=== PATIENT | male | born 1945 | race Caucasian/White ===

== ENCOUNTER → 2020-03-25 09:15 | Outpatient (CLI) | payer MEDICARE, SELFPAY ==
--- NOTE | ~2020-03-25 | XR_ITS ---
EXAMINATION: XR hand RT min 3V, XR wrist RT min 3V EXAM DATE: 03/25/2020 09:30 INDICATION: No known recent injury provided at this time. Pain of the right hand, wrist. TECHNIQUE: Right hand frontal, lateral and oblique projections obtained and reviewed. Right wrist fro ntal, frontal with ulnar deviation, oblique and lateral projections obtained and reviewed. There is no prior study for comparison. FINDINGS: Right metacarpal bones are unremarkable. Right wrist scapholunate joint space is maintain ed. There is mild to moderate right 1st interphalangeal primary osteoarthritis, less at other interph alangeal joints. Juxta-articular erosion at the head of the right 2nd middle phalanx. No other erosio ns identified. Gout not excludable. Suspect some swelling of this digit. There is moderate 1st carpometacarpal primary osteoarthritis. There are no acute fractures or disloca tions identified. There is no subcutaneous gas. There are no radiopaque foreign bodies. IMPRESSION: 1. Right hand and wrist polyarticular osteoarthritis, most advanced right 1st CMC and 2nd DIP joints. 2. Small erosion right 2nd middle phalangeal head, and some digit swelling. Gout not excludable. Reviewed, dictated and finalized at location B. VIRTUALIZATION CONSULTANT IMPRESSION: 1. Right hand and wrist polyarticular osteoarthritis, most advanced right 1st C MC and 2nd DIP joints. 2. Small erosion right 2nd middle phalangeal head, and some digit swelling. Gou t not excludable.
== END ==
PROVIDERS: PCP Family Medicine; Visit Provider Family Medicine
DX: M25.531 Pain in right wrist (principal); M79.643 Pain in unspecified hand; M19.031 Primary osteoarthritis, right wrist
CPT/HCPCS: 73110; 73130

== ENCOUNTER 2020-06-04 09:03 | Outpatient (CLI) | payer MEDICARE, SELFPAY ==
--- NOTE | ~2020-06-04 | XR_ITS ---
EXAMINATION: XR hip LT min 3V w AP pelvis INDICATION: Left hip pain TECHNIQUE: AP view the pelvis and three views of the left hip are obtained. COMPARISON: None available FINDINGS: Bone alignment is normal. There is no fracture. The soft tissues are unremarkable. Calcifie d atherosclerosis is noted. IMPRESSION: 1. No acute osseous abnormality. Reviewed, dictated and finalized at location B.
== END 2020-06-04 09:04 | disposition home or self-care (01) ==
PROVIDERS: PCP Family Medicine; Visit Provider Family Medicine
DX: M25.559 Pain in unspecified hip (principal)
CPT/HCPCS: 73502

== ENCOUNTER → 2020-06-18 02:02 | Outpatient (CLI) | payer MEDICARE, SELFPAY ==
[2020-06-18 19:11] LABS: SARS-CoV-2 RNA PCR Negative
== END ==
PROVIDERS: PCP Family Medicine; Visit Provider Internal Medicine Gastroenterology
DX: Z01.812 Encounter for preprocedural laboratory examination (principal); Z20.822 Contact with and (suspected) exposure to COVID-19
CPT/HCPCS: C9803; U0003; U0005

== ENCOUNTER 2020-06-21 01:59 | Day surgery (SDC) | payer MEDICARE, SELFPAY ==
[2020-06-09 14:00] VITALS: BMI 25.1
[2020-06-21 10:43] VITALS: BP 116/73; PULSE 80; RESP 18; TEMP 36.2; O2SAT 95
--- NOTE | 2020-06-21 10:57 | WPDANESEPPF ---
Anes - Initial Pre Proc Eval Procedure: Operation Date: 06/21/20 11:30 Proposed Procedures p Screening Colonoscopy - Baltazar Aguilar DO Date/Time: 06/21/20 10:57 Surgeon: Baltazar Aguilar DO Pre Op Diagnosis: neoplasm screening Patient Data Age: 74 Gender: M Height: 5 ft 4 in Weight: 66.1 kg Last Vital Signs Temp 36.2 C L 06/21/20 10:43 Pulse 80 06/21/20 10:43 Resp 18 06/21/20 10:43 BP 116/73 06/21/20 10:43 Pulse Ox 95 06/21/20 10:43 Allergies Allergy/AdvReac Type Severity Reaction Status Date / Time No Known Allergies Allergy Verified 06/21/20 10:36 Home Medications Medication Instructions Recorded Confirmed Type amiodarone 200 mg tablet 200 mg PO DAILY 11/18/19 06/09/20 History aspirin 81 mg tablet,delayed 81 mg PO DAILY 11/18/19 06/09/20 History release ferrous sulfate 325 mg (65 mg 325 mg PO DAILY 11/18/19 06/09/20 History iron) tablet multivitamin,[id number]-qaog-[id number] 1 tablet PO DAILY 11/18/19 06/09/20 History naproxen sodium 220 mg tablet 220 mg PO BID PRN 11/18/19 06/09/20 History apixaban 5 mg tablet 5 mg PO BID 03/02/20 06/09/20 History docusate sodium 100 mg capsule 100 mg PO DAILY 03/02/20 06/09/20 History furosemide 20 mg tablet 20 mg PO QAM 03/02/20 06/09/20 History potassium chloride 20 mEq See Rx Instructions .ROUTE .COMPLEX 03/02/20 06/09/20 History tablet,extended release pravastatin 40 mg tablet 40 mg PO DAILY 03/02/20 06/09/20 History albuterol sulfate 90 mcg/actuation 2 puff INHALATION Q4H PRN #8.5 g 03/04/20 06/09/20 Rx aerosol inhaler omeprazole 40 mg capsule,delayed See Rx Instructions .ROUTE 05/06/20 06/09/20 Rx release .COMPLEX #90 capsule hydroxyzine pamoate 25 mg capsule 25 mg PO TID PRN 06/01/20 06/09/20 History metoprolol succinate 100 mg 50 mg PO DAILY tablet 06/01/20 06/09/20 History tablet,extended release 24 hr Patient hx anesthesia problems: none Family hx anesthesia problems: none PMFSH Past Medical History Medical History Acute UTI (~06/05/18) Afib Anemia Cognitive impairment COPD (chronic obstructive pulmonary disease) Dyslipidemia Essential (primary) hypertension GERD without esophagitis History of colon polyps Hx of non-ST elevation myocardial infarction (NSTEMI) Left shoulder pain Paroxysmal A-fib Rotator cuff tendonitis Surgical History Surgical History History of cardioversion 05/2017 and 10/2019 History of eye surgery (~1950) Hx of tonsillectomy (~1955) Family History Family History Mother Alzheimer disease Father Alzheimer disease Social History Social History Smoking packs per day: 0.5 Smoking cigarettes per day: 10.0 Years smoked: 3 Smoking pack-years: 1.50 Smoking status: Former smoker Smoking end date: 02/19/75 Alcohol intake: current Substance use: never Substance use type: does not use Living arrangements: with family Additional living arrangements comments: Gender identity (if verbalized by the patient): Male Spiritual care concerns: No Anes - Eval Final PreProcedure Day of Procedure 06/21/20 10:57 Patient weight: normal Heart: regular rate and rhythm Lungs: decreased breath sounds Airway: Mallampati scale class II Neurological: other (alert) Last oral intake: >/= 8 hours ASA classification: III Emergent: no Anesthetic plan: proceed Anesthesia type and monitoring: general GIVS and standard monitoring Informed Consent: The patient's anesthetic plan and its attendant risks and benefits were discussed with the patient/family/POA. Questions were solicited and answers provided to the satisfaction of the patient/family/POA.
[2020-06-21] MEDS: LACTATED RINGERS 1,000 ML 150 ML IV CONT (10:58)
--- NOTE | 2020-06-21 12:08 | WPDGICN ---
GI Consult Note Consult date/time: 06/21/20 12:08 HPI: Reason for visit colonoscopy. This very pleasant gentleman sitting consultation request the primary physician. Screening and surveillance colonoscopy. Patient's history adenomatous colon polyps. HTN. HLD. Atrial fibrillation. NSTEMI. GERD. COPD. Dementia. Recommendation: Colonoscopy. History: This very pleasant gentleman has negative GI review systems. He is here for colonoscopy to assess for underlying inflammatory neoplastic disease. He has history adenomatous colon polyps. Physical examination: General: very pleasant patient in no acute distress. HEENT: Head was normocephalic sclerae is clear mouth without masses neck was supple. Heart: Rate rhythm regular without S3 or S4. Occasional ectopic beat. Lungs: Decreased breath sounds bilaterally with crackles . Abdomen: Soft with no guarding or rigidity. Bowel sounds were active. Neurologic: Cranial nerves 2 through 12 intact. No focal defects. No clonus. Musculoskeletal system: Revealed no joint tenderness or swelling no muscle atrophy. Extremities: Reveal no significant edema. Skin: Warm and dry with normal turgor. Mental status: intact. Patient is alert and oriented. Review of Systems Review of Systems: All systems reviewed & are unremarkable except as noted in HPI and below PMFSH Past Medical History Medical History Acute UTI (~06/05/18) Afib Anemia Cognitive impairment COPD (chronic obstructive pulmonary disease) Dyslipidemia Essential (primary) hypertension GERD without esophagitis History of colon polyps Hx of non-ST elevation myocardial infarction (NSTEMI) Left shoulder pain Paroxysmal A-fib Rotator cuff tendonitis Surgical History Surgical History History of cardioversion 05/2017 and 10/2019 History of eye surgery (~1950) Hx of tonsillectomy (~1955) Family History Family History Mother Alzheimer disease Father Alzheimer disease Social History Social History Smoking packs per day: 0.5 Smoking cigarettes per day: 10.0 Years smoked: 3 Smoking pack-years: 1.50 Smoking status: Former smoker Smoking end date: 02/19/75 Alcohol intake: current Substance use: never Substance use type: does not use Living arrangements: with family Additional living arrangements comments: Gender identity (if verbalized by the patient): Male Spiritual care concerns: No Meds Home Medications and Allergies Home Medications Medication Instructions Recorded Confirmed Type amiodarone 200 mg tablet 200 mg PO DAILY 11/18/19 06/09/20 History aspirin 81 mg tablet,delayed 81 mg PO DAILY 11/18/19 06/09/20 History release ferrous sulfate 325 mg (65 mg 325 mg PO DAILY 11/18/19 06/09/20 History iron) tablet multivitamin,ih-xswn-upuyeshv 1 tablet PO DAILY 11/18/19 06/09/20 History naproxen sodium 220 mg tablet 220 mg PO BID PRN 11/18/19 06/09/20 History apixaban 5 mg tablet 5 mg PO BID 03/02/20 06/09/20 History docusate sodium 100 mg capsule 100 mg PO DAILY 03/02/20 06/09/20 History furosemide 20 mg tablet 20 mg PO QAM 03/02/20 06/09/20 History potassium chloride 20 mEq See Rx Instructions .ROUTE .COMPLEX 03/02/20 06/09/20 History tablet,extended release pravastatin 40 mg tablet 40 mg PO DAILY 03/02/20 06/09/20 History albuterol sulfate 90 mcg/actuation 2 puff INHALATION Q4H PRN #8.5 g 03/04/20 06/09/20 Rx aerosol inhaler omeprazole 40 mg capsule,delayed See Rx Instructions .ROUTE 05/06/20 06/09/20 Rx release .COMPLEX #90 capsule hydroxyzine pamoate 25 mg capsule 25 mg PO TID PRN 06/01/20 06/09/20 History metoprolol succinate 100 mg 50 mg PO DAILY tablet 06/01/20 06/09/20 History tablet,extended rele
[2020-06-21 12:33] VITALS: BP 95/58; PULSE 60; RESP 10; O2SAT 100
[2020-06-21 12:43] VITALS: BP 108/60; PULSE 60; RESP 11; O2SAT 100
[2020-06-21 12:53] VITALS: BP 120/68; PULSE 68; RESP 22; O2SAT 100
== END 2020-06-21 13:18 | disposition home or self-care (01) ==
PROVIDERS: PCP Family Medicine; Visit Provider Internal Medicine Gastroenterology
PROC: 0DJD8ZZ Inspection of Lower Intestinal Tract, Via Natural or Artificial Opening Endoscopic (ICD-10-PCS; CPT 45378; principal; 2020-06-21 11:30)
DX: Z12.11 Encounter for screening for malignant neoplasm of colon (principal); Z86.010 Personal history of colon polyps; K64.8 Other hemorrhoids; K21.9 Gastro-esophageal reflux disease without esophagitis; E78.5 Hyperlipidemia, unspecified; J44.9 Chronic obstructive pulmonary disease, unspecified; F03.90 Unspecified dementia, unspecified severity, without behavioral disturbance, psychotic disturbance, mood disturbance, and anxiety; I25.2 Old myocardial infarction; I48.91 Unspecified atrial fibrillation; I48.0 Paroxysmal atrial fibrillation; Z87.891 Personal history of nicotine dependence; Z79.01 Long term (current) use of anticoagulants; Z79.82 Long term (current) use of aspirin; I10 Essential (primary) hypertension
CPT/HCPCS: G0105; C9803; J2704; J7120; U0003; U0005

== ENCOUNTER 2021-09-06 10:38 | Outpatient (CLI) | payer MEDICARE, SELFPAY ==
[2021-09-06 18:49] LABS: Alanine Aminotransferase 17 U/L (6-50); Albumin Level 4.5 g/dL (3.5-5.1); Alkaline Phosphatase 61 U/L (38-126); Anion Gap 11 mmol/L (8-16); Aspartate Amino Transferase 43 U/L (17-59); Bilirubin,Total 0.7 mg/dL (0.2-1.3); Blood Urea Nitrogen 14 mg/dL (9-20); Calcium 9.6 mg/dL (8.4-10.2); Carbon Dioxide 24 mmol/L (22-30); Chloride 99 mmol/L (98-107); Estimated Glomerular Filt Rate > 60; Glucose 99 mg/dL (65-110); Potassium 4.1 mmol/L (3.4-5.0); Sodium 134 mmol/L (137-145)
== END 2021-09-06 10:39 | disposition home or self-care (01) ==
LOC: ANHGOSHLAB 10:44
PROVIDERS: PCP Family Medicine; Visit Provider Family Medicine
DX: Z51.81 Encounter for therapeutic drug level monitoring (principal); Z79.899 Other long term (current) drug therapy; I10 Essential (primary) hypertension
CPT/HCPCS: 36415; 80053

== ENCOUNTER → 2021-09-29 08:22 | Outpatient (CLI) | payer MEDICARE, SELFPAY ==
--- NOTE | ~2021-09-29 | MR_ITS ---
EXAMINATION: MR hip LT wo/w con DATE: 09/29/2021 09:32 INDICATION: Left hip pain. TECHNIQUE: Magnetic resonance imaging (MRI) of the left hip was performed without intravenous contras t. COMPARISON: Left hip radiographs 09/23/2021 FINDINGS: Bones/cartilage: Bone alignment is normal. No fracture. There is mild osteoarthritis of the hips. Small [id number]-kw-iexp images of the left hip demonstrate partial thickness cartilage loss and tiny osteophytes. Labrum: There is a tear of the left acetabular labrum. Fluid: There is no hip joint effusion. Soft tissues: Stool distends the rectum. The prostate is mildly enlarged. There are small right and large left hydr oceles. The gluteus minimus and gluteus medius tendons are normal. There is moderate tendinopathy of the hamstring origins bilaterally. The iliopsoas tendons are normal. IMPRESSION: 1. No fracture. 2. Mild osteoarthritis of the hips. 3. Small right and large left hydroceles. Reviewed, dictated and finalized at location A.
== END ==
PROVIDERS: PCP Family Medicine; Visit Provider Nurse Practitioner Family
DX: M25.552 Pain in left hip (principal); M16.0 Bilateral primary osteoarthritis of hip; N43.3 Hydrocele, unspecified
CPT/HCPCS: 73723; A9577

== ENCOUNTER → 2021-12-27 13:02 | Outpatient (CLI) | payer MEDICARE, SELFPAY ==
--- NOTE | ~2021-12-27 | MR_ITS ---
EXAMINATION: MR lumbar spine wo con DATE: 12/27/2021 13:40 INDICATION: Other low back pain. TECHNIQUE: Magnetic resonance imaging (MRI) of the lumbar spine was performed without intravenous con trast. Sequences included sagittal T2-weighted FSE, sagittal T2-weighted FS FSE, sagittal T1-weighted FSE, and axial T2-weighted FSE. COMPARISON: None FINDINGS: There is 5 degrees dextrocurvature of thoracolumbar spine. There is 5 mm anterolisthesis of L4 on L5. Vertebral body heights are normal. There is moderately decreased disc height at T12-L1, mi ldly decreased disc height at L2-L3 and L3-L4, and moderately decreased disc height at L4-L5. The dis asim spinal cord signal intensity is normal. The conus medullaris is at T12. The following disc levels are specifically discussed: T12-L1: The disc is bulging. There is mild bilateral facet joint osteoarthritis. There is no neural f oraminal stenosis. There is mild central canal stenosis. L1-L2: The disc is bulging. There is no facet joint osteoarthritis. There is mild bilateral neural fo raminal stenosis. There is no central canal stenosis. L2-L3: The disc is mildly bulging. There is severe right and mild left facet joint osteoarthritis. Th ere is mild bilateral neural foraminal stenosis. There is mild central canal stenosis. L3-L4: The disc is bulging. There is severe bilateral facet joint osteoarthritis. There is mild bilat eral neural foraminal stenosis. There is mild central canal stenosis. L4-L5: The disc is bulging and has an annular fissure. There is severe bilateral facet joint osteoart hritis. There is mild bilateral neural foraminal stenosis. There is moderate central canal stenosis. There is severe stenosis of right lateral recess. L5-S1: The disc does not extend beyond the endplate margin. There is moderate bilateral facet joint o steoarthritis. There is mild bilateral neural foraminal stenosis. There is no central canal stenosis. IMPRESSION: 1. Moderate lumbar spondylosis. Reviewed, dictated and finalized at location A. OR MARKET INTELLIGENCE CONSULTANT
== END ==
PROVIDERS: PCP Family Medicine; Visit Provider Nurse Practitioner Family
DX: M54.59 Other low back pain (principal); M43.06 Spondylolysis, lumbar region
CPT/HCPCS: 72148

== ENCOUNTER → 2022-05-04 16:00 | Outpatient (CLI) | payer MEDICARE, SELFPAY ==
--- NOTE | ~2022-05-04 | XR_ITS ---
XR chest 2V 05/04/2022 16:11 Indication: Shortness of breath Procedure: 2 view chest Comparison: No prior studies for comparison. Findings: There are coarse interstitial infiltrates bilaterally along the periphery with basilar pred ominance, suspicious for chronic interstitial fibrosis. Cardiomegaly. There is right upper lobe atele ctasis/scarring. Cannot exclude superimposed pneumonia. There is a hiatal hernia. The lungs are hyperinflated which is consistent with, but not diagnostic of chronic obstructive pulmo nary disease. Impression: 1: Probable chronic interstitial fibrosis. Cannot exclude superimposed pneumonia. 2: Hiatal hernia. Reviewed, dictated and finalized at location A. Impression: 1: Probable chronic interstitial fibrosis. Cannot exclude superimposed pneumoni a. 2: Hiatal hernia.
== END ==
PROVIDERS: PCP Family Medicine; Visit Provider Family Medicine
DX: R06.02 Shortness of breath (principal); R91.8 Other nonspecific abnormal finding of lung field; K44.9 Diaphragmatic hernia without obstruction or gangrene
CPT/HCPCS: 71046

== ENCOUNTER 2022-05-18 08:12 | Outpatient (CLI) | payer MEDICARE, SELFPAY ==
--- NOTE | ~2022-05-18 | CT_ITS ---
EXAMINATION:CT diagnostic chest w con DATE: 05/18/2022 08:46 INDICATION: Pulmonary fibrosis. TECHNIQUE: Computed tomography (CT) of the chest was performed with 75 mL Omnipaque 350 intravenous c ontrast. Automated exposure control and iterative reconstruction technique were employed. The dose-le ngth product (DLP) was 152.22 mGy-cm. COMPARISON: Chest 2 views 05/04/2022 FINDINGS: There is widespread septal thickening the lungs with a peripheral predominance. There is pe ripheral honeycombing in all lobes. There are subsegmental airspace and groundglass opacities in righ t upper lobe. No pleural effusion. There is a large sliding hiatal hernia. The heart size is normal. There are coronary artery calcifications. No pericardial effusion. There are cysts in the liver measu ring up to 13 mm. Calcifications in the liver and spleen are consistent with old granulomatous diseas e. There is severe cervical and thoracic spondylosis. There is cortical thinning of the kidneys. IMPRESSION: 1. Chronic interstitial lung disease in a pattern of usual interstitial pneumonia (UIP). 2. Subsegmental airspace and groundglass opacities in right upper lobe, likely pneumonia. 3. Large sliding hiatal hernia. Reviewed, dictated and finalized at location A. IMPRESSION: 1. Chronic interstitial lung disease in a pattern of usual interstitial pneumon ia (UIP). 2. Subsegmental airspace and groundglass opacities in right upper lobe, likely pneumonia. 3. Large sliding hiatal hernia.
== END 2022-05-18 08:13 | disposition home or self-care (01) ==
PROVIDERS: PCP Family Medicine; Visit Provider Family Medicine
DX: J84.10 Pulmonary fibrosis, unspecified (principal); J84.9 Interstitial pulmonary disease, unspecified; R91.8 Other nonspecific abnormal finding of lung field; K44.9 Diaphragmatic hernia without obstruction or gangrene
CPT/HCPCS: 71260; Q9967

== ENCOUNTER 2022-05-25 08:17 | Outpatient (CLI) | payer MEDICARE, SELFPAY ==
--- NOTE | 2022-05-25 11:30 | PCRCNOTE ---
PATIENT UNABLE TO PERFORM PFT TESTING DUE TO COGNITIVE DECLINE AND INABILITY TO FOLLOW INSTRUCTIONS. PATIENT WAS NOT CHARGED FOR TEST. ORDERING DR BASSAM NOTIFIED
== END 2022-05-25 08:18 | disposition home or self-care (01) ==
LOC: ANHPFT 08:17
PROVIDERS: PCP Family Medicine; Visit Provider Family Medicine
DX: J84.10 Pulmonary fibrosis, unspecified (principal)
CPT/HCPCS: 99199

== ENCOUNTER 2022-06-23 12:12 | Outpatient (CLI) | payer MEDICARE, SELFPAY ==
[2022-06-23 13:00] VITALS: PULSE 63; O2SAT 96
[2022-06-23 13:05] VITALS: PULSE 78; O2SAT 97
[2022-06-23 13:15] VITALS: PULSE 68; O2SAT 97
--- NOTE | 2022-06-23 13:20 | HOMEO2EVAL ---
Evaluation was performed at [facility] Home Oxygen Evaluation RC: Home Oxygen (O2) Evaluation Start: 06/23/22 13:17 Freq: Status: Active Protocol: RPE Activity Type Activity Date Activity User E-sign Co-sign Detail Recorded Client Recorded Date Recorded By Document 06/23/22 13:00 DJO [email or web address] 06/23/22 13:20 DJO Document 06/23/22 13:05 DJO [email or web address] 06/23/22 13:20 DJO Document 06/23/22 13:15 DJO [email or web address] 06/23/22 13:20 DJO 06/23/22 06/23/22 06/23/22 13:00 13:05 13:15 Home O2 Evaluation [Oxygen] -Test Phase Resting Exercise Resting -Oxygen Delivery Room Air Room Air Room Air [Pulse Oximetry] -Pulse Oximetry (90-100 %) 96 97 97 [Pulse Rate] -Pulse Rate (60-100 beats/min) 63 78 68 [Exercise] -Ambulation Distance (feet) 500 -Ambulation Distance (meters) 152.39 [Charges] -Treatment Charges O2 Evaluation - Outpatient
== END 2022-06-23 12:13 | disposition home or self-care (01) ==
LOC: ANHPFT 12:14
PROVIDERS: PCP Family Medicine; Visit Provider Internal Medicine Pulmonary Disease
DX: J84.9 Interstitial pulmonary disease, unspecified (principal); F03.90 Unspecified dementia, unspecified severity, without behavioral disturbance, psychotic disturbance, mood disturbance, and anxiety
CPT/HCPCS: 94618

== ENCOUNTER 2022-06-26 10:15 | Outpatient (CLI) | payer MEDICARE, SELFPAY ==
--- NOTE | ~2022-06-26 | XR_ITS ---
EXAMINATION: XR barium swallow modified DATE: 06/26/2022 11:30 INDICATION: Dysphagia TECHNIQUE: Modified barium esophagram was performed by myself who administered fluoroscopy, in conju nction with speech pathologist who administered barium in varying consistencies as per speech patholo gist documentation. This was recorded on tape. A single fluoroscopic spot image was recorded. Fluoros copy exposure time was 1.5 minutes. The DAP for this procedure was 1.119 Gycm2. FINDINGS: Oral stage: Adequate function. Pharyngeal phase: Piriform sinus residue. Laryngeal penetration: Present. Aspiration: Present. Laryngeal sensitivity: Absent. IMPRESSION: Abnormal modified barium swallow. Please refer to speech pathologist findings and specifi c feeding recommendations. Reviewed, dictated and finalized at location A. IMPRESSION: Abnormal modified barium swallow. Please refer to speech pathologis t findings and specific feeding recommendations.
--- NOTE | 2022-06-26 16:59 | REHSTMBS ---
Assessment and note entered by Bel Duran, ASSISTANT FINANCE DIRECTOR Modified Barium Swallow Evaluation Feeding Type Recommended Oral Food Consistency Regular, Level 7 Liquid Consistency Mildly Thick (2) ST Clinical Summary MODIFIED BARIUM SWALLOW STUDY This patient was seen for a Modified Barium Swallow to assess this patient's risk for aspiration. Initially, he stated he does not have difficulty swallowing however when asked about coughing at every meal, patient then did admit to coughing at every meal but does not equate this with difficulty swallowing. He essentially denied having difficulty swallowing both food and liquid . Patient was presented with thin liquid per spoon, cup, and per straw, nectar thick liquid per cup and per straw, pudding mixed with semi-solid contrast medium, then fruit pieces and alivia cracker pieces both coated with semi-solid mixture. Patient exhibited consistent penetration into the upper laryngeal vestibule on thin liquid and nectar thick liquid per straw however although he exhibited penetration with thin liquid per cup, he avoided penetration with cup with nectar thick liquid. He tolerated other consistencies well. Impairments: Oral Stage: None Pharyngeal Stage: Reduced laryngeal elevation contributing to reduced airway closure given liquids too quickly per straw. Cricopharyngeal Stage: None. Recommend patient have Regular Diet, Mildly Thick Liquids, NO STRAWS. No further Speech Therapy is indicated at this time. Thank you for this referral.
== END 2022-06-26 10:16 | disposition home or self-care (01) ==
PROVIDERS: PCP Family Medicine; Visit Provider Internal Medicine Pulmonary Disease
DX: T17.908A Unspecified foreign body in respiratory tract, part unspecified causing other injury, initial encounter (principal); F03.90 Unspecified dementia, unspecified severity, without behavioral disturbance, psychotic disturbance, mood disturbance, and anxiety; R93.3 Abnormal findings on diagnostic imaging of other parts of digestive tract
CPT/HCPCS: 92611

== ENCOUNTER → 2022-09-06 11:57 | Outpatient (CLI) | payer MEDICARE, SELFPAY ==
--- NOTE | ~2022-09-06 | XR_ITS ---
EXAMINATION: XR elbow RT min 3V DATE: 09/06/2022 12:18 INDICATION: Right elbow pain. TECHNIQUE: 5 views of right elbow were obtained. COMPARISON: None. FINDINGS: There is an oblique fracture of olecranon of proximal ulna. The distal fracture fragment de monstrates 3 mm distraction. There is mild elbow joint osteoarthritis. There is an elbow joint effusi on. IMPRESSION: 1. Oblique fracture of olecranon of proximal ulna. Reviewed, dictated and finalized at location A.
== END ==
PROVIDERS: PCP Family Medicine; Visit Provider Family Medicine
DX: S52.021A Displaced fracture of olecranon process without intraarticular extension of right ulna, initial encounter for closed fracture (principal); W19.XXXA Unspecified fall, initial encounter
CPT/HCPCS: 73080

== ENCOUNTER 2022-09-07 09:19 | Emergency (ER) | payer MEDICARE, SELFPAY ==
--- NOTE | ~2022-09-07 | XR_ITS ---
EXAMINATION: XR wrist RT min 3V DATE: 09/07/2022 10:03 INDICATION: Right wrist pain and bruising. Fall. TECHNIQUE: 4 views of right wrist were obtained. COMPARISON: Right wrist radiograph 03/25/2020 FINDINGS: Bone alignment is normal. No fracture. Again seen is a 4 mm nonaggressive lytic lesion in l unate, likely a benign lesion such as an enchondroma. There is mild osteoarthritis of triscaphe joint and severe osteoarthritis of first carpometacarpal joint. IMPRESSION: 1. Polyarticular osteoarthritis. Reviewed, dictated and finalized at location A.
[2022-09-07 09:26] VITALS: BP 122/69; PULSE 60; RESP 16; TEMP 36.4; O2SAT 100
[2022-09-07 09:34] VITALS: BP 119/69; PULSE 59; RESP 20; O2SAT 100
--- NOTE | 2022-09-07 11:13 | ED.UPPEXIN ---
HPI - Extremity Injury (Upper) General Chief Complaint: Extremity Injury, Upper Stated Complaint: arm fx Time Seen by Provider: 09/07/22 09:34 History of Present Illness HPI narrative: 77-year-old [facility], landing on his elbow. He has seen his doctor since then, who got an x-ray showing a broken arm, and she cannot get in follow-up to orthopedics who told him to go to the hospital. Denies any numbness or weakness, he does have some swelling and bruising to his elbow, does not report pain anywhere else. Related Data Home Medications Medication Instructions Recorded Confirmed amiodarone 200 mg tablet 200 mg PO DAILY 11/18/19 09/06/22 ferrous sulfate 325 mg (65 mg 325 mg PO DAILY 11/18/19 09/06/22 iron) tablet multivitamin,ue-xwhp-jdhtjlee 1 tablet PO DAILY 11/18/19 09/06/22 (Complete Multivitamin tablet) apixaban 5 mg tablet (Eliquis) 5 mg PO BID 03/02/20 09/06/22 docusate sodium 100 mg capsule 100 mg PO DAILY 03/02/20 09/06/22 (Colace) pravastatin 80 mg tablet 80 mg PO DAILY 09/01/20 09/06/22 memantine 10 mg tablet (Namenda) 10 mg PO BID 09/06/21 09/06/22 furosemide 20 mg tablet 20 mg PO .every other day 11/11/21 09/06/22 metoprolol succinate 25 mg 25 mg PO DAILY 11/11/21 09/06/22 tablet,extended release 24 hr acetaminophen 500 mg tablet 1,000 mg PO TID pain 05/04/22 09/06/22 (Tylenol Extra Strength) lidocaine 5 % topical patch 1 patch topical DAILY 05/04/22 09/06/22 sertraline 50 mg tablet 50 mg PO DAILY 05/04/22 09/06/22 potassium chloride 20 mEq meq PO .QOD 09/06/22 09/06/22 tablet,extended release(part/cryst) tramadol 50 mg tablet 50 mg PO TID PRN 09/06/22 09/06/22 Allergies Allergy/AdvReac Type Severity Reaction Status Date / Time No Known Allergies Allergy Verified 09/07/22 09:33 Review of Systems Review of Systems: CONST: No fever. HEENT: No sore throat C/V: No chest pain RESP: No cough GI: No abdominal pain : No dysuria. M/S: Right elbow pain SKIN: Bruising right arm NEURO: [No headache or focal numbness or weakness] PSYCH: [No depression] [facility] Past Medical History Medical History Afib Chronic left SI joint pain COPD (chronic obstructive pulmonary disease) Dementia Dyslipidemia Essential (primary) hypertension GERD without esophagitis History of colon polyps Hx of non-ST elevation myocardial infarction (NSTEMI) Left hip pain Left shoulder pain Osteoarthritis Paroxysmal A-fib Tendonitis of left rotator cuff Trochanteric bursitis, left hip Surgical History Surgical History History of cardioversion 05/2017 and 10/2019 History of eye surgery (~1950) Hx of tonsillectomy (~1955) Family History Family History Mother Alzheimer disease Father Alzheimer disease Social History Social History Smoking packs per day: 0.5 Smoking cigarettes per day: 10.0 Years smoked: 3 Smoking pack-years: 1.50 Smoking status: Former smoker Smoking end date: 02/19/75 Alcohol intake: never Substance use: never Substance use type: does not use Living arrangements: assisted living Additional living arrangements comments: at [facility] Occupation/Education: retired Gender identity (if verbalized by the patient): Male Sexual Orientation (if Verbalized by the Patient): Straight or Heterosexual Spiritual care concerns: No Exam Narrative: EXAMINATION OF ORGAN SYSTEMS/BODY AREAS: Constitutional: Vital signs per nursing GENERAL:[No acute distress, non-toxic appearing.] HEAD: Normal with no signs of head trauma. EYES: EOMI, conjunctiva normal ENT: Hearing grossly intact LUNGS: Nonlabored breathing. HEART: [Regular rate and rhythm] ABD: [Soft], [nontender to palpation] EXT: Shila
[2022-09-07 11:40] VITALS: BP 117/69; PULSE 56; RESP 15; O2SAT 100
[2022-09-07 12:10] VITALS: BP 127/70; PULSE 72; RESP 16; O2SAT 98
== END 2022-09-07 12:10 ==
LOC: ANHED 11:55
PROVIDERS: Emergency Provider Emergency Medicine; PCP Family Medicine
DX: S42.401D Unspecified fracture of lower end of right humerus, subsequent encounter for fracture with routine healing (principal); I10 Essential (primary) hypertension; E78.5 Hyperlipidemia, unspecified; F03.90 Unspecified dementia, unspecified severity, without behavioral disturbance, psychotic disturbance, mood disturbance, and anxiety; J44.9 Chronic obstructive pulmonary disease, unspecified; I48.0 Paroxysmal atrial fibrillation; I25.2 Old myocardial infarction; Z79.891 Long term (current) use of opiate analgesic; Z79.01 Long term (current) use of anticoagulants; Z87.891 Personal history of nicotine dependence; W18.30XD Fall on same level, unspecified, subsequent encounter; Y92.512 Supermarket, store or market as the place of occurrence of the external cause
CPT/HCPCS: 29105; 73110; 99284; A4565

== ENCOUNTER 2023-05-21 12:28 | Outpatient (CLI) | payer MEDICARE, SELFPAY ==
--- NOTE | ~2023-05-21 | CT_ITS ---
EXAMINATION:CT chest high resolution wo me DATE: 05/21/2023 12:59 INDICATION: Interstitial pulmonary disease. TECHNIQUE: Computed tomography (CT) of the chest was performed without intravenous contrast. Automate d exposure control and iterative reconstruction technique were employed. The dose-length product (DLP ) was 314.36 mGy-cm. COMPARISON: None currently available. FINDINGS: There is widespread septal thickening associated with groundglass opacities in the lungs wi th a peripheral predominance. There is volume loss in the lungs. There is peripheral honeycombing in all lobes. There are small airspace opacities in the lungs bilaterally. There is a trace right pleura l effusion. Calcified right hilar and mediastinal lymph nodes are consistent with old granulomatous d isease. The heart size is normal. There are coronary artery calcifications. No pericardial effusion. There is a large sliding hernia. There is a portion of the colon in the hiatal hernia. Calcifications in the liver and spleen are consistent with old granulomatous disease. There is severe cervical and thoracic spondylosis. There is mild chronic anterior wedging of multiple vertebral bodies. IMPRESSION: 1. Chronic interstitial lung disease in a pattern of usual interstitial pneumonia (UIP). Superimposed pneumonia cannot be excluded. 2. Large sliding hiatal hernia. Reviewed, dictated and finalized at location A. IMPRESSION: 1. Chronic interstitial lung disease in a pattern of usual interstitial pneumon ia (UIP). Superimposed pneumonia cannot be excluded. 2. Large sliding hiatal hernia.
== END 2023-05-21 12:29 | disposition home or self-care (01) ==
LOC: ANHIMG 12:29
PROVIDERS: PCP Family Medicine; Visit Provider Internal Medicine Pulmonary Disease
DX: J84.9 Interstitial pulmonary disease, unspecified (principal); K44.9 Diaphragmatic hernia without obstruction or gangrene
CPT/HCPCS: 71250

== ENCOUNTER 2023-07-05 15:39 | Inpatient (IN) | payer MEDICARE, SELFPAY ==
[2023-07-05] VITALS (27 sets, daily range): BP systolic 98–149; BP diastolic 68–94; PULSE 86–96; RESP 18–40; TEMP 36.3–36.9; O2SAT 90–98; BMI 21.1
--- NOTE | ~2023-07-05 | CT_ITS ---
EXAMINATION: CT facial & cervical spine wo DATE: 07/06/2023 15:14 INDICATION: Head injury. TECHNIQUE: Computed tomography (CT) of the maxillofacial region and cervical spine was performed with out intravenous contrast. Automated exposure control and iterative reconstruction technique were empl oyed. The dose-length product was 330.03 mGy-cm. COMPARISON: None FINDINGS: MAXILLOFACIAL CT: There is leftward deviation of the posterior nasal septum. No fracture. The paranasal sinuses are nubia ar. The mastoid air cells are normal. The orbits are normal. There is extensive dental disease. CERVICAL SPINE CT: The visualized portions of the lung bases demonstrate extensive groundglass opacities and septal thic kening. There are small pleural effusions. There is 2 mm anterolisthesis of C6 on C7. There is 8 degr ees levocurvature of the spine. Vertebral body heights are normal. There is moderately decreased disc height at C2-C3 and severely decreased disc height from C3-C4 through C7-T1. There is interbody fusi on at C4-C5. The following disc levels are specifically discussed: C2-C3: There is severe bilateral uncovertebral joint osteoarthritis. There is severe bilateral facet joint osteoarthritis. There is mild right and moderate left neural foraminal stenosis. There is no ce ntral canal stenosis. C3-C4: There is severe bilateral uncovertebral joint osteoarthritis. There is severe bilateral facet joint osteoarthritis. There is moderate bilateral neural foraminal stenosis. There is mild central ca nal stenosis. C4-C5: There is moderate bilateral uncovertebral joint hypertrophy. There is ankylosis of the facet j oints with moderate hypertrophy. There is moderate right and mild left neural foraminal stenosis. The re is mild central canal stenosis. C5-C6: There is severe bilateral uncovertebral joint osteoarthritis. There is severe bilateral facet joint osteoarthritis. There is moderate bilateral neural foraminal stenosis. There is mild central ca nal stenosis. C6-C7: There is severe right and moderate left uncovertebral joint osteoarthritis. There is severe bi lateral facet joint osteoarthritis. There is moderate bilateral neural foraminal stenosis. There is m ild central canal stenosis. C7-T1: There is severe bilateral uncovertebral joint osteoarthritis. There is severe bilateral facet joint osteoarthritis. There is mild bilateral neural foraminal stenosis. There is mild central canal stenosis. IMPRESSION: 1. No acute fracture. 2. Severe cervical spondylosis. 3. Lung disease, consistent with pulmonary edema versus pneumonia. 4. Small pleural effusions. Reviewed, dictated and finalized at location E.
--- NOTE | ~2023-07-05 | XR_ITS ---
EXAMINATION: XR chest 1V portable DATE: 07/05/2023 16:51 INDICATION: Shortness of breath TECHNIQUE: frontal view of the chest was obtained. COMPARISON: Chest radiograph dated 05/04/[address] dated 05/21/2023 FINDINGS: Patient is rotated slightly towards the right. Diffuse interstitial and airspace opacities throughout both lungs. Small right pleural effusion. No pneumothorax. Normal anatomic variant azygos lobe and f issure at the right upper lung zone. Heart size is normal. Large retrocardiac opacity corresponding t o a large hiatal hernia on prior CT. Calcified mediastinal lymph nodes consistent with old granulomat ous disease. IMPRESSION: 1. Diffuse interstitial and airspace opacities throughout both lungs which could represent moderate t o severe pulmonary edema or pneumonia. 2. Small right pleural effusion. 3. Large hiatal hernia. Reviewed, dictated and finalized at location A. IMPRESSION: 1. Diffuse interstitial and airspace opacities throughout both lungs which coul d represent moderate to severe pulmonary edema or pneumonia. 2. Small right pleural effusion. 3. Large hiatal hernia.
--- NOTE | ~2023-07-05 | CT_ITS ---
EXAMINATION: CT brain wo con DATE: 07/06/2023 15:14 INDICATION: Head injury. TECHNIQUE: Computed tomography (CT) of the head was performed without intravenous contrast. The mA wa s adjusted according to patient size. Iterative reconstruction technique was employed. The dose-lengt h product was 1362.00 mGy-cm. COMPARISON: None FINDINGS: There are scattered areas of low attenuation in the cerebral white matter. 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 There is no intracranial hemorrhage, acute inf arction, or abnormal intracranial mass lesion. The ventricles are normal in size. There is mild mucos al thickening in the ethmoid sinuses. The mastoid air cells are normal. The orbits are normal. IMPRESSION: 1. 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 2. Mild nonspecific cerebral white matter disease, which likely represents chronic small vessel ische carmen disease. Reviewed, dictated and finalized at location E. IMPRESSION: 1. 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 2. Mild nonspecific cerebral white matter disease, which likely represents design painter magalys small vessel ischemic disease.
--- NOTE | 2023-07-05 15:47 | ECG_ITS ---
SEE SCANNED COPY FOR CONFIRMED REPORT MTDD
--- NOTE | 2023-07-05 15:54 | ED.GENADULT ---
HPI - General Adult General Chief complaint: Shortness of Breath/Dyspnea Stated complaint: resp. distress History of Present Illness HPI narrative: 77-year-old male present to the emergency department for evaluation of shortness of breath. Patient was at the local long-term had acute onset of shortness of breath. Patient was hypoxic when EMS arrived so they placed him on oxygen and CPAP. Patient was transported to the emergency department and upon arrival patient did feel improved. Patient had rhonchi on the exam but patient was alert and appropriate. Patient states he does feel improved. Patient denies having any chest pain. Related Data Home Medications Medication Instructions Recorded Confirmed amiodarone 200 mg tablet 200 mg PO DAILY 11/18/19 07/05/23 ferrous sulfate 325 mg (65 mg 325 mg PO DAILY 11/18/19 07/05/23 iron) tablet multivitamin,tn-noko-buvukynu 1 tablet PO DAILY 11/18/19 07/05/23 (Complete Multivitamin tablet) docusate sodium 100 mg capsule 100 mg PO DAILY 03/02/20 07/05/23 (Colace) pravastatin 80 mg tablet 80 mg PO DAILY 09/01/20 07/05/23 memantine 10 mg tablet (Namenda) 10 mg PO BID 09/06/21 07/05/23 furosemide 20 mg tablet 20 mg PO DAILY 11/11/21 07/05/23 metoprolol succinate 25 mg 25 mg PO DAILY 11/11/21 07/05/23 tablet,extended release 24 hr acetaminophen 500 mg tablet 1,000 mg PO TID pain 05/04/22 07/05/23 (Tylenol Extra Strength) lidocaine 5 % topical patch 1 patch topical DAILY 05/04/22 07/05/23 sertraline 50 mg tablet 50 mg PO DAILY 05/04/22 07/05/23 potassium chloride 20 mEq 20 meq PO .QOD 09/06/22 07/05/23 tablet,extended release(part/cryst) tramadol 50 mg tablet 50 mg PO TID 09/06/22 07/05/23 sertraline 25 mg tablet 25 mg PO DAILY 11/09/22 07/05/23 doxycycline hyclate 50 mg capsule 50 mg PO DAILY 07/05/23 07/05/23 tuberculin PPD 5 tub. unit/0.1 mL 0.1 ml intradermal ONCE 05/16/24 05/16/24 intradermal injection solution (Tubersol) Allergies Allergy/AdvReac Type Severity Reaction Status Date / Time No Known Allergies Allergy Verified 07/05/23 17:09 Review of Systems Review of Systems: All systems reviewed & are unremarkable except as noted in HPI and below [facility] Past Medical History Medical History (Updated 07/05/23 @ 21:59 by Nando Tirado MD) Afib Chronic left SI joint pain COPD (chronic obstructive pulmonary disease) Dementia Dyslipidemia Essential (primary) hypertension GERD without esophagitis History of colon polyps Hx of non-ST elevation myocardial infarction (NSTEMI) Left hip pain Left shoulder pain Osteoarthritis Paroxysmal A-fib Tendonitis of left rotator cuff Trochanteric bursitis, left hip Surgical History Surgical History History of cardioversion 05/2017 and 10/2019 History of eye surgery (~1950) Hx of tonsillectomy (~1955) Family History Family History Mother Alzheimer disease Father Alzheimer disease Social History Social History Smoking packs per day: 0.5 Smoking cigarettes per day: 10.0 Years smoked: 3 Smoking pack-years: 1.50 Smoking status: Former smoker Smoking end date: 02/19/85 Alcohol intake: never Substance use: never Substance use type: does not use Living arrangements: assisted living Additional living arrangements comments: at [facility] Occupation/Education: retired Gender identity (if verbalized by the patient): Male Sexual Orientation (if Verbalized by the Patient): Straight or Heterosexual Spiritual care concerns: No Exam Narrative: APPEARANCE: breathing comfortably on BiPAP HEAD: normocephalic, atraumatic. EYES: PERRLA/EOMI, conjunctivae clear. NOSE: Normal no drainage EARS:TMS clear with good light reflex. THROAT: Pharynx clear, no exudate. NECK: Supple. No adenopathy, no masses. RESPIRATORY: rhonchi and wheeze bilaterally CARDIOVASCULAR: Regular rate and rhythm without murmurs rubs or gallops. ABDOMINAL: Soft, nontender, nondistended, normal bowel sounds MUSCULOSKELETAL: Moves all extremities. edema NEURO: Alert. Cranial nerves II through XII intact. Good gait. Good coordination SKIN: Warm, dry. Normal Color Course Course Emergency Course: patient was admitted to the hospitalist for COPD CHF and pneumonia Vital Signs Vital signs: Vital Signs Temperature 98.5 F 07/05/23 15:39 Pulse Rate 87 07/05/23 15:39 Respiratory Rate 29 H 07/05/23 15:39 Blood Pressure 121/68 07/05/23 15:39 Pulse Oximetry 95 07/05/23 15:39 Oxygen Delivery EMS-CPAP 07/05/23 15:39 Oxygen Flow Rate 15 07/05/23 15:39 Temperature 97.6 F 07/05/23 21:00 Pulse Rate 93 07/05/23 21:00 Respiratory Rate 37 H 07/05/23 21:00 Blood Pressure 131/87 07/05/23 21:00 Pulse Oximetry 93 07/05/23 21:00 Oxygen Delivery BiPAP 07/05/23 20:34 Oxygen Flow Rate 15 07/05/23 15:39 Medical Decision Making MDM Narrative Medical decision making narrative: 77-year-old male present to the ED for evaluation for acute onset of shortness of breath. Patient arrived to the ED on CPAP. EKG did show some ST elevations but patient is pain free. EKG was reviewed by Cardiology they did not feel this was an acute STEMI. Serial EKGs will be ordered. patient's troponin was elevated along with the BNP. Some of this may be demand ischemia. Case was rediscussed with Cardiology and they are comfortable with plan for starting the patient heparin. repeat EKG showed no acute changes. Patient denies any chest pain. Patient was afebrile but does have a leukocytosis of 27.6 and this is new for the patient. INR is 1.6, patient had a lactic acid of 2.7. chest x-ray was concerning for bilateral pneumonia. COVID is pending. Patient was started on antibiotics for concern for underlying bacterial pneumonia, blood cultures are pending. Patient was admitted to the IMU after discussion with hospitalist. Differential Diagnosis Differential Diagnosis: COPD, CHF pneumonia, NSTEMI, STEMI Vital Signs Vital Signs: Vital Signs Temperature 98.5 F 07/05/23 15:39 Pulse Rate 87 07/05/23 15:39 Respiratory Rate 29 H 07/05/23 15:39 Blood Pressure 121/68 07/05/23 15:39 Pulse Oximetry 95 07/05/23 15:39 Oxygen Delivery EMS-CPAP 07/05/23 15:39 Oxygen Flow Rate 15 07/05/23 15:39 Temperature 97.6 F 07/05/23 21:00 Pulse Rate 93 07/05/23 21:00 Respiratory Rate 37 H 07/05/23 21:00 Blood Pressure 131/87 07/05/23 21:00 Pulse Oximetry 93 07/05/23 21:00 Oxygen Delivery BiPAP 07/05/23 20:34 Oxygen Flow Rate 15 07/05/23 15:39 Lab Data Lab results reviewed: Yes I reviewed the patient's lab results. 07/05/23 15:57 07/05/23 16:57 Labs: Lab Results 07/05/23 07/05/23 07/05/23 Range/Units 15:57 15:58 16:02 WBC 27.6 H (4.5-10.0) K/mm3 RBC 3.50 L (4.6-6.20) M/mm3 Hgb 10.9 L (14.0-18.0) g/dL Hct 34.2 L (42.0-52.0) % MCV 97.7 (80-100) fl MCH 31.1 (26-34) pg MCHC 31.9 L (32-36) g/dl RDW 13.6 (11.5-14.5) % Plt Count 353 (150-375) k/mm3 MPV 9.2 (7.4-10.4) fl Immature Gran % (Auto) 1.0 H (0-0.5) % Neut % (Auto) 87.5 H (45.5-73.1) % Lymph % (Auto) 6.3 L (18.3-44.2) % [place] % (Auto) 5.1 (2.6-8.5) % Eos % (Auto) 0.0 (0-4.4) % Baso % (Auto) 0.1 L (0.2-1.2) % Lymph # (Auto) 1.73 (0.9-3.2) K/mm3 [place] # (Auto) 1.4 H (0.1-0.6) K/mm3 Eos # (Auto) 0.0 (0-0.3) K/mm3 Baso # (Auto) 0.0 (0.0-0.1) K/mm3 Abs Immat Gran (auto) 0.28 H (0.00-0.031) K/mm3 Absolute Neuts (auto) 24.1 H (1.3-6.7) K/mm3 Absolute Nucleated RBC 0.000 (0.0-0.012) K/mm3 Nucleated RBC % 0.0 (0.0-0.2) % PT 20.3 H (11.1-14.7) Seconds INR 1.6 APTT 35.2 (22.3-36.8) Seconds Methemoglobin (0-1.5) %THb Expiratory Pressure CMH2O Inspiratory Pressure CMH2O Sodium (137-145) mmol/L Potassium (3.4-5.0) mmol/L Chloride (98-107) mmol/L Carbon Dioxide (22-30) mmol/L Anion Gap (4-12) mmol/L BUN (9-20) mg/dL Creatinine (0.7-1.3) mg/dL Estim Creat Clear Calc ml/min Estimated GFR (59 - ) Glucose (65-110) mg/dL Lactic Acid 2.7 H (0.7-2.0) mmol/L Calcium (8.4-10.2) mg/dL Total Bilirubin (0.2-1.3) mg/dL AST (17-59) U/L ALT (6-50) U/L Alkaline Phosphatase (38-126) U/L Troponin I (0.000-0.034) ng/mL NT-Pro-B Natriuret Pep (19.9-100) pg/mL Total Protein (6.3-8.2) g/dL Albumin (3.5-5.1) g/dL Influenza A (RT-PCR) (Negative) Influenza B (RT-PCR) (Negative) RSV (RT-PCR) (Negative) SARS-CoV-2 RNA (RT-PCR) (Negative) 07/05/23 07/05/23 07/05/23 Range/Units 16:18 16:57 17:20 WBC (4.5-10.0) K/mm3 RBC (4.6-6.20) M/mm3 Hgb (14.0-18.0) g/dL Hct (42.0-52.0) % MCV (80-100) fl MCH (26-34) pg MCHC (32-36) g/dl RDW (11.5-14.5) % Plt Count (150-375) k/mm3 MPV (7.4-10.4) fl Immature Gran % (Auto) (0-0.5) % Neut % (Auto) (45.5-73.1) % Lymph % (Auto) (18.3-44.2) % [place] % (Auto) (2.6-8.5) % Eos % (Auto) (0-4.4) % Baso % (Auto) (0.2-1.2) % Lymph # (Auto) (0.9-3.2) K/mm3 [place] # (Auto) (0.1-0.6) K/mm3 Eos # (Auto) (0-0.3) K/mm3 Baso # (Auto) (0.0-0.1) K/mm3 Abs Immat Gran (auto) (0.00-0.031) K/mm3 Absolute Neuts (auto) (1.3-6.7) K/mm3 Absolute Nucleated RBC (0.0-0.012) K/mm3 Nucleated RBC % (0.0-0.2) % PT (11.1-14.7) Seconds INR APTT (22.3-36.8) Seconds Methemoglobin 0.3 (0-1.5) %THb Expiratory Pressure 6 CMH2O Inspiratory Pressure 12 CMH2O Sodium 139 (137-145) mmol/L Potassium 3.6 (3.4-5.0) mmol/L Chloride 105 (98-107) mmol/L Carbon Dioxide 25 (22-30) mmol/L Anion Gap 9 (4-12) mmol/L BUN 27 H D (9-20) mg/dL Creatinine 0.70 (0.7-1.3) mg/dL Estim Creat Clear Calc 75 ml/min Estimated GFR > 60 (59 - ) Glucose 196 H (65-110) mg/dL Lactic Acid (0.7-2.0) mmol/L Calcium 8.7 (8.4-10.2) mg/dL Total Bilirubin 0.5 (0.2-1.3) mg/dL AST 100 H (17-59) U/L ALT 62 H (6-50) U/L Alkaline Phosphatase 134 H (38-126) U/L Troponin I 1.500 H* (0.000-0.034) ng/mL NT-Pro-B Natriuret Pep 65732 H (19.9-100) pg/mL Total Protein 7.0 (6.3-8.2) g/dL Albumin 3.5 (3.5-5.1) g/dL Influenza A (RT-PCR) Negative (Negative) Influenza B (RT-PCR) Negative (Negative) RSV (RT-PCR) Negative (Negative) SARS-CoV-2 RNA (RT-PCR) Negative (Negative) 07/05/23 Range/Units 19:24 WBC (4.5-10.0) K/mm3 RBC (4.6-6.20) M/mm3 Hgb (14.0-18.0) g/dL Hct (42.0-52.0) % MCV (80-100) fl MCH (26-34) pg MCHC (32-36) g/dl RDW (11.5-14.5) % Plt Count (150-375) k/mm3 MPV (7.4-10.4) fl Immature Gran % (Auto) (0-0.5) % Neut % (Auto) (45.5-73.1) % Lymph % (Auto) (18.3-44.2) % [place] % (Auto) (2.6-8.5) % Eos % (Auto) (0-4.4) % Baso % (Auto) (0.2-1.2) % Lymph # (Auto) (0.9-3.2) K/mm3 [place] # (Auto) (0.1-0.6) K/mm3 Eos # (Auto) (0-0.3) K/mm3 Baso # (Auto) (0.0-0.1) K/mm3 Abs Immat Gran (auto) (0.00-0.031) K/mm3 Absolute Neuts (auto) (1.3-6.7) K/mm3 Absolute Nucleated RBC (0.0-0.012) K/mm3 Nucleated RBC % (0.0-0.2) % PT (11.1-14.7) Seconds INR APTT (22.3-36.8) Seconds Methemoglobin (0-1.5) %THb Expiratory Pressure CMH2O Inspiratory Pressure CMH2O Sodium (137-145) mmol/L Potassium (3.4-5.0) mmol/L Chloride (98-107) mmol/L Carbon Dioxide (22-30) mmol/L Anion Gap (4-12) mmol/L BUN (9-20) mg/dL Creatinine (0.7-1.3) mg/dL Estim Creat Clear Calc ml/min Estimated GFR (59 - ) Glucose (65-110) mg/dL Lactic Acid 2.8 H (0.7-2.0) mmol/L Calcium (8.4-10.2) mg/dL Total Bilirubin (0.2-1.3) mg/dL AST (17-59) U/L ALT (6-50) U/L Alkaline Phosphatase (38-126) U/L Troponin I 1.280 H* (0.000-0.034) ng/mL NT-Pro-B Natriuret Pep (19.9-100) pg/mL Total Protein (6.3-8.2) g/dL Albumin (3.5-5.1) g/dL Influenza A (RT-PCR) (Negative) Influenza B (RT-PCR) (Negative) RSV (RT-PCR) (Negative) SARS-CoV-2 RNA (RT-PCR) (Negative) ABG Data ABG results: 07/05/23 16:18 Puncture Site Left brachial ABG pH 7.461 H ABG pCO2 32.7 L ABG pO2 65.7 L ABG PO2/FiO2 Ratio 1.64 ABG HCO3 22.8 ABG O2 Saturation 94.2 L ABG O2 Content 14.7 L ABG Base Excess -0.5 A-a Gradient 181.9 Oxyhemoglobin 92.5 Carboxyhemoglobin 0.6 Reduced Hemoglobin 6.6 H Total Hemoglobin 11.3 L O2 Delivery Device Non-invasive vent O2 Liters/Min 0.0 Vent Rate 4 FiO2 40 Imaging Data Radiologist's impression: Impressions Chest X-Ray 07/05/23 16:53 IMPRESSION: 1. Diffuse interstitial and airspace opacities throughout both lungs which could represent moderate to severe pulmonary edema or pneumonia. 2. Small right pleural effusion. 3. Large hiatal hernia. Critical Care Time Critical Care Time Critical Care Time: Yes Total Critical Care Time: 35 Discharge Plan Discharge Clinical Impression: CHF (congestive heart failure), Pneumonia, Elevated troponin Patient Disposition: Still a Patient Condition: Improved
[2023-07-05] MEDS: ALBUTEROL SULFATE NEB 2.5 MG/3 ML INH INHALATION ×2 (16:06→20:46)
[2023-07-05 16:16] LABS: Basophils Percent Auto 0.1 % (0.2-1.2); Hematocrit 34.2 % (42.0-52.0); Hemoglobin 10.9 g/dL (14.0-18.0); Immature Granulocyte Absolute 0.28 K/mm3 (0.00-0.031); Lymphocytes Absolute Auto 1.73 K/mm3 (0.9-3.2); Lymphocytes Percent Auto 6.3 % (18.3-44.2); Mean Corpuscular HGB Conc 31.9 g/dl (32-36); Mean Corpuscular Hemoglobin 31.1 pg (26-34); Mean Corpuscular Volume 97.7 fl (80-100); Mean Platelet Volume 9.2 fl (7.4-10.4); Monocytes Absolute Auto 1.4 K/mm3 (0.1-0.6); Monocytes Percent Auto 5.1 % (2.6-8.5); Neutrophils Absolute Auto 24.1 K/mm3 (1.3-6.7); Neutrophils Percent Auto 87.5 % (45.5-73.1); Platelet Count Result 353 k/mm3 (150-375); Red Cell Distribution Width 13.6 % (11.5-14.5); White Blood Count 27.6 K/mm3 (4.5-10.0)
--- NOTE | 2023-07-05 16:18 | ECG_ITS ---
SEE SCANNED COPY FOR CONFIRMED REPORT MTDD
[2023-07-05 16:25] LABS: Alveolar/Arterial O2 Gradient 181.9 mmHg; Base Excess ABG -0.5 mEq/l (+/-2.0); Carboxyhemoglobin 0.6 % THb (0-2.0); Fractional Inspired Oxygen 40 %; HCO3 ABG 22.8 mEq/l (22.0-26.0); Methemoglobin ABG 0.3 %THb (0-1.5); Oxygen Content ABG 14.7 %vol (16.0-22.0); Oxygen Saturation ABG 94.2 % (95.0-100.0); Oxyhemoglobin 92.5 % THb (90.0-100.0); PCO2 ABG 32.7 mmHg (35.0-45.0); PO2 ABG 65.7 mmHg (80.0-100.0); PO2 FiO2 Ratio Arterial Blood 1.64 %; Reduced Hemoglobin 6.6 %THb (0-5.0); Total Hemoglobin 11.3 g/dL (12.0-18.0); pH ABG 7.461 (7.350-7.450)
[2023-07-05 16:27] LABS: Device NON-INVASIVE VENT; Site Drawn LEFT BRACHIAL
[2023-07-05 16:28] LABS: Non-Invasive Expiratory Pressure 6 CMH2O; Non-Invasive Inspiratory Pressure 12 CMH2O; Non-Invasive Vent Rate 4 /MIN
[2023-07-05 16:28] LABS: INR 1.6; Prothrombin Time 20.3 Seconds (11.1-14.7)
[2023-07-05 16:29] LABS: Lactic Acid Reflex 2.7 mmol/L (0.7-2.0)
[2023-07-05 16:29] LABS: Partial Thromboplastin Time 35.2 Seconds (22.3-36.8)
[2023-07-05 17:12] LABS: Alanine Aminotransferase 62 U/L (6-50); Albumin Level 3.5 g/dL (3.5-5.1); Alkaline Phosphatase 134 U/L (38-126); Anion Gap 9 mmol/L (4-12); Aspartate Amino Transferase 100 U/L (17-59); Bilirubin,Total 0.5 mg/dL (0.2-1.3); Blood Urea Nitrogen 27 mg/dL (9-20); Calcium 8.7 mg/dL (8.4-10.2); Carbon Dioxide 25 mmol/L (22-30); Chloride 105 mmol/L (98-107); Estimated CRCL calculation 75 ml/min; Estimated Glomerular Filt Rate > 60; Glucose 196 mg/dL (65-110); Potassium 3.6 mmol/L (3.4-5.0); Sodium 139 mmol/L (137-145)
[2023-07-05 17:26] LABS: NT Pro B Type Natriuretic Pept 17000 pg/mL (19.9-100)
--- NOTE | 2023-07-05 17:29 | PC.NURSE ---
Phlebotomy called to get second set of blood cultures before starting antibiotics.
[2023-07-05] MEDS: FUROSEMIDE INJ 40 MG/4 ML VIAL IV PUSH (17:47)
[2023-07-05] MEDS: HEPARIN SODIUM 5,000 UNITS/ML VIAL 4000 UNITS IV PUSH (18:01)
[2023-07-05] MEDS: HEPARIN SOD/D5W 100 UNITS/ML 25,000 UNITS/250 ML BAG 8 UNITS IV CONT (18:03)
[2023-07-05 18:32] LABS: Influenza A QL RT-PCR Negative (Negative); Influenza B QL RT-PCR Negative (Negative); RSV RNA, RT-PCR Negative (Negative); SARS-CoV-2 RNA PCR Negative (Negative)
[2023-07-05] MEDS: AZITHROMYCIN 500 MG/NS 250 ML 500 MG/250 ML BAG 250 MG IVPB (18:38)
[2023-07-05 19:09] LABS: Reflex Lactic Acid Yes or No Add Lactic
--- NOTE | 2023-07-05 19:30 | ECG_ITS ---
SEE SCANNED COPY FOR CONFIRMED REPORT MTDD
[2023-07-05 19:39] LABS: Lactic Acid 2.8 mmol/L (0.7-2.0)
--- NOTE | 2023-07-05 20:29 | PC.NURSE ---
requested male purwick from central supply for patient comfort and documentation because patient has been urinating in depends, so staff is unable to get accurate urine output for documentation
--- NOTE | 2023-07-05 21:33 | PM.IMHP ---
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 patient was brought to the emergency room due to sudden onset of shortness of breath. At the time of my visit patient is on BiPAP. Most of the history has been obtained upon reviewing medical records and emergency room physician. Preliminary workup was significant for chest x-ray with lung infiltrates. EXAMINATION: XR chest 1V portable DATE: 07/05/2023 16:51 INDICATION: Shortness of breath TECHNIQUE: frontal view of the chest was obtained. COMPARISON: Chest radiograph dated 05/04/[address] dated 05/21/2023 EXAMINATION: XR chest 1V portable DATE: 07/05/2023 16:51 INDICATION: Shortness of breath TECHNIQUE: frontal view of the chest was obtained. COMPARISON: Chest radiograph dated 05/04/[address] dated 05/21/2023 FINDINGS: Patient is rotated slightly towards the right. Diffuse interstitial and airspace opacities throughout both lungs. Small right pleural effusion. No pneumothorax. Normal anatomic variant azygos lobe and fissure at the right upper lung zone. Heart size is normal. Large retrocardiac opacity corresponding to a large hiatal hernia on prior CT. Calcified mediastinal lymph nodes consistent with old granulomatous disease. IMPRESSION: 1. Diffuse interstitial and airspace opacities throughout both lungs which could represent moderate to severe pulmonary edema or pneumonia. 2. Small right pleural effusion. 3. Large hiatal hernia. FINDINGS: Patient is rotated slightly towards the right. Diffuse interstitial and airspace opacities throughout both lungs. Small right pleural effusion. No pneumothorax. Normal anatomic variant azygos lobe and fissure at the right upper lung zone. Heart size is normal. Large retrocardiac opacity corresponding to a large hiatal hernia on prior CT. Calcified mediastinal lymph nodes consistent with old granulomatous disease. IMPRESSION: 1. Diffuse interstitial and airspace opacities throughout both lungs which could represent moderate to severe pulmonary edema or pneumonia. 2. Small right pleural effusion. 3. Large hiatal hernia. Review of Systems Review of Systems: ROS unobtainable: Yes unobtainable due to medical condition ( Respiratory distress on BiPAP) [facility] Past Medical History Medical History (Updated 07/06/23 @ 00:58 by Paresh Lao MD) Afib Chronic left SI joint pain COPD (chronic obstructive pulmonary disease) Dementia Dyslipidemia Essential (primary) hypertension GERD without esophagitis History of colon polyps Hx of non-ST elevation myocardial infarction (NSTEMI) Left hip pain Left shoulder pain Osteoarthritis Paroxysmal A-fib Tendonitis of left rotator cuff Trochanteric bursitis, left hip Surgical History Surgical History History of cardioversion 05/2017 and 10/2019 History of eye surgery (~1950) Hx of tonsillectomy (~1955) Family History Family History Mother Alzheimer disease Father Alzheimer disease Social History Social History Smoking packs per day: 0.5 Smoking cigarettes per day: 10.0 Years smoked: 3 Smoking pack-years: 1.50 Smoking status: Unknown if ever smoked Smoking end date: 02/19/85 Alcohol intake: never Substance use: never Substance use type: does not use Living arrangements: assisted living Additional living arrangements comments: at [facility] Occupation/Education: retired Gender identity (if verbalized by the patient): Male Sexual Orientation (if Verbalized by the Patient): Straight or Heterosexual Spiritual care concerns: No Meds Home Medications and Allergies Home Medications Medication Instructions Recorded Confirmed Type amiodarone 200 mg tablet 200 mg PO DAILY 11/18/19 07/05/23 History ferrous sulfate 325 mg (65 mg 325 mg PO DAILY 11/18/19 07/05/23 History iron) tablet multivitamin,[id number] 1 tablet PO DAILY 11/18/19 07/05/23 History (Complete Multivitamin tablet) docusate sodium 100 mg capsule 100 mg PO DAILY 03/02/20 07/05/23 History (Colace) albuterol sulfate 90 mcg/actuation 2 puff inhalation Q4H PRN 03/04/20 07/05/23 Rx aerosol inhaler (Proventil HFA) shortness of breath or wheezing #8.5 grams pravastatin 80 mg tablet 80 mg PO DAILY 09/01/20 07/05/23 History omeprazole 40 mg capsule,delayed 40 mg PO DAILY #90 caps 05/09/21 07/05/23 Rx release cholecalciferol (vitamin D3) 50 50 mcg PO DAILY #90 tabs 09/06/21 07/05/23 Rx mcg (2,000 unit) tablet memantine 10 mg tablet (Namenda) 10 mg PO BID 09/06/21 07/05/23 History hydroxyzine pamoate 25 mg capsule 25 mg PO TID Anxiety #270 caps 10/14/21 07/05/23 Rx furosemide 20 mg tablet 20 mg PO DAILY 11/11/21 07/05/23 History metoprolol succinate 25 mg 25 mg PO DAILY 11/11/21 07/05/23 History tablet,extended release 24 hr acetaminophen 500 mg tablet 1,000 mg PO TID pain 05/04/22 07/05/23 History (Tylenol Extra Strength) lidocaine 5 % topical patch 1 patch topical DAILY 05/04/22 07/05/23 History sertraline 50 mg tablet 50 mg PO DAILY 05/04/22 07/05/23 History glycopyrrolate 9 mcg-formoterol 2 inh inhalation BID #10.7 grams 07/25/22 07/05/23 Rx 4.8 mcg HFA aerosol inhaler ([employer]) potassium chloride 20 mEq 20 meq PO .QOD 09/06/22 07/05/23 History tablet,extended release(part/cryst) tramadol 50 mg tablet 50 mg PO TID 09/06/22 07/05/23 History sertraline 25 mg tablet 25 mg PO DAILY 11/09/22 07/05/23 History apixaban 5 mg tablet (Eliquis) 5 mg PO BID #60 tabs 05/22/23 07/05/23 Rx doxycycline hyclate 50 mg capsule 50 mg PO DAILY 07/05/23 07/05/23 History tuberculin PPD 5 tub. unit/0.1 mL 0.1 ml intradermal ONCE 07/05/23 07/05/23 History intradermal injection solution (Tubersol) Allergies Allergy/AdvReac Type Severity Reaction Status Date / Time No Known Allergies Allergy Verified 07/05/23 17:09 Vital Signs Vital Signs - 24 hr 07/05/23 15:39 07/05/23 15:50 07/05/23 16:07 Temperature 98.5 F Pulse Rate 87 86 86 Respiratory Rate 29 H 30 H 24 H Blood Pressure 121/68 Pulse Oximetry 95 96 Oxygen Delivery EMS-CPAP BiPAP Oxygen Flow Rate 15 07/05/23 16:21 07/05/23 17:00 07/05/23 17:51 Temperature Pulse Rate 89 91 Respiratory Rate 29 H 21 H Blood Pressure 149/94 H Pulse Oximetry 96 93 Oxygen Delivery BiPAP Oxygen Flow Rate 07/05/23 17:54 07/05/23 17:31 07/05/23 17:46 Temperature Pulse Rate 90 88 93 Respiratory Rate 34 H 25 H 25 H Blood Pressure 116/76 101/74 Pulse Oximetry 96 95 96 Oxygen Delivery BiPAP Oxygen Flow Rate 07/05/23 18:01 07/05/23 18:31 07/05/23 18:46 Temperature Pulse Rate 90 92 94 Respiratory Rate 24 H 27 H 27 H Blood Pressure 126/87 124/78 125/85 Pulse Oximetry 97 95 95 Oxygen Delivery Oxygen Flow Rate 07/05/23 19:01 07/05/23 19:16 07/05/23 20:02 Temperature Pulse Rate 93 92 93 Respiratory Rate 31 H 25 H 18 Blood Pressure 121/73 119/72 98/69 L Pulse Oximetry 94 96 98 Oxygen Delivery Oxygen Flow Rate 07/05/23 20:20 07/05/23 20:34 07/05/23 20:46 Temperature Pulse Rate 92 89 Respiratory Rate 40 H 37 H Blood Pressure 129/83 Pulse Oximetry 94 94 Oxygen Delivery BiPAP Oxygen Flow Rate 07/05/23 20:30 07/05/23 20:51 07/05/23 21:00 Temperature 97.6 F Pulse Rate 89 90 93 Respiratory Rate 33 H 38 H 37 H Blood Pressure 131/87 Pulse Oximetry 97 93 Oxygen Delivery BiPAP Oxygen Flow Rate Exam Narrative: patient is laying in bed on BiPAP Const: General: cooperative, comfortable, well developed, alert, awake, in distress moderate and thin Nutritional Appearance: thin Orientation/consciousness: patient oriented x3 HENMT: Head: normal to inspection, normocephalic and atraumatic Ears: hearing grossly normal bilaterally Face/Nose/Sinus: normal facial exam Face and sinus: normal facial exam Eyes: General: appearance normal, both eyes and all related structures Pupils: Equal, round and reactive pupils present EOM: EOMs intact bilaterally Neck: Neck: full ROM, no lymphadenopathy and no JVD Thyroid: thyroid normal Lymphatic: no lymphadenopathy noted Resp: Effort & Inspection: tachypneic Auscultation: clear to auscultation bilaterally, crackles, rales, wheezes and diminished lung sounds Cardio: Jugular venous distension: no JVD Rate: regular rate Rhythm: regular rhythm Heart sounds: S1 normal heart sound present and S2 normal heart sound present GI: Inspection: normal to inspection and no visible herniation GI Palp: Yes Soft to palpation and Yes No hepatosplenomegaly present : General: Yes deferred Skin: Rashes: no rashes Wounds: no wounds Neuro: General: patient oriented x3 and CN's II-XI intact bilaterally Cranial nerves: Yes CN's II-XII intact bilaterally and Yes Equal, round and reactive pupils present Cognition (Neuro): normal cognition Speech: normal speech Gait exam (Neuro): Unable to assess gait Motor exam (neuro): 5/5 motor strength present throughout Extrem: General: normal to inspection, full ROM, no joint enlargement and no pedal edema H&P: Results Labs Labs: Short CBC 07/05/23 Range/Units 15:57 WBC 27.6 H (4.5-10.0) K/mm3 Hgb 10.9 L (14.0-18.0) g/dL Hct 34.2 L (42.0-52.0) % Plt Count 353 (150-375) k/mm3 BMP 07/05/23 16:57 Sodium 139 Potassium 3.6 Chloride 105 Carbon Dioxide 25 BUN 27 H D Creatinine 0.70 Glucose 196 H Calcium 8.7 Cardiac Enzymes 07/05/23 07/05/23 Range/Units 16:57 19:24 Troponin I 1.500 H* 1.280 H* (0.000-0.034) ng/mL Liver Function 07/05/23 Range/Units 16:57 Total Bilirubin 0.5 (0.2-1.3) mg/dL AST 100 H (17-59) U/L ALT 62 H (6-50) U/L Alkaline Phosphatase 134 H (38-126) U/L Albumin 3.5 (3.5-5.1) g/dL Assessment and Plan Assessment and plan (1) Acute hypoxic respiratory failure: Code(s): J96.01 - Acute respiratory failure with hypoxia Status: Acute Assessment and Plan: currently on BiPAP supportive care (2) COPD (chronic obstructive pulmonary disease): Qualifiers: COPD type: unspecified COPD Qualified Code(s): J44.9 - Chronic obstructive pulmonary disease, unspecified Code(s): J44.9 - Chronic obstructive pulmonary disease, unspecified Status: Acute Assessment and Plan: scheduled breathing treatments systemic steroids Rocephin and Zithromax (3) Interstitial pulmonary fibrosis: Code(s): J84.10 - Pulmonary fibrosis, unspecified Status: Acute Assessment and Plan: supportive care (4) Afib: Code(s): I48.91 - Unspecified atrial fibrillation Status: Acute Assessment and Plan: continue amiodarone continue anticoagulation (5) Recurrent falls: Code(s): R29.6 - Repeated falls Status: Acute Assessment and Plan: fall precautions (6) GERD without esophagitis: Code(s): K21.9 - Gastro-esophageal reflux disease without esophagitis Status: Acute Assessment and Plan: PPI (7) Advancing dementia: Code(s): F03.90 - Unspecified dementia, unspecified severity, without behavioral disturbance, psychotic disturbance, mood disturbance, and anxiety Status: Acute Assessment and Plan: currently on sertraline
[2023-07-05] MEDS: MORPHINE SULFATE (*CRX) 2 MG/ML INJ 1 MG IV PUSH (21:41)
--- NOTE | 2023-07-05 22:30 | ECG_ITS ---
SEE SCANNED COPY FOR CONFIRMED REPORT MTDD
--- NOTE | 2023-07-05 22:43 | PC.NURSE ---
This patient, Rafat Johnston III, was admitted to IMU Room 201-01 at 2100. Patient oriented to hospital policies and general routines including ID bracelet, bed and alarms, visiting hours, pain management, procedures, bathroom and other care routines, personal items, smoking policy, room service/diet, and visiting hours. Patient are encouraged to report perceived risks to care and to ask questions if they do not understand what they are told or what they should do.
[2023-07-06] VITALS (38 sets, daily range): BP systolic 107–145; BP diastolic 69–100; PULSE 0–145; RESP 29–44; TEMP 36–36.6; O2SAT 85–98
[2023-07-06] MEDS: methylPREDNISolone SOD SUCC 125 MG VIAL IV PUSH (00:40)
[2023-07-06] MEDS: LORazepam INJ (*CRX) 2 MG/ML VIAL 1 MG IV PUSH (00:40)
[2023-07-06] MEDS: MORPHINE SULFATE (*CRX) 2 MG/ML INJ 1 MG IV PUSH (00:41)
[2023-07-06 01:01] LABS: INR 1.4; Prothrombin Time 18.4 Seconds (11.1-14.7)
[2023-07-06 01:02] LABS: Partial Thromboplastin Time 46.4 Seconds (22.3-36.8)
[2023-07-06] MEDS: HEPARIN SODIUM 5,000 UNITS/ML VIAL 4000 UNITS IV PUSH (01:08)
[2023-07-06] MEDS: ALBUTEROL SULFATE NEB 2.5 MG/3 ML INH INHALATION ×4 (01:43→20:22)
[2023-07-06] MEDS: FUROSEMIDE INJ 40 MG/4 ML VIAL (01:55)
[2023-07-06] MEDS: AMIODARONE 360 MG/D5W 200 ML 360 MG/200 ML BAG 33.33 MG IV CONT (05:00)
--- NOTE | 2023-07-06 05:15 | PC.NURSE ---
Rocio called to check on pt. This RN updated her on his poor respiratory status. Patient is still somewhat labored and tachypneic after multiple interventions and that his heart rate is now elevated in afib. Rocio will come up and see Rafat this morning.
[2023-07-06] MEDS: methylPREDNISolone SOD SUCC 125 MG VIAL 60 MG IV PUSH ×3 (06:48→17:00)
[2023-07-06 07:22] LABS: Basophils Percent Auto 0.1 % (0.2-1.2); Hematocrit 33.8 % (42.0-52.0); Hemoglobin 11.1 g/dL (14.0-18.0); Immature Granulocyte Absolute 0.41 K/mm3 (0.00-0.031); Immature Granulocyte Percent A 1.4 % (0-0.5); Lymphocytes Absolute Auto 0.81 K/mm3 (0.9-3.2); Lymphocytes Percent Auto 2.7 % (18.3-44.2); Mean Corpuscular HGB Conc 32.8 g/dl (32-36); Mean Corpuscular Hemoglobin 31.3 pg (26-34); Mean Corpuscular Volume 95.2 fl (80-100); Mean Platelet Volume 9.1 fl (7.4-10.4); Monocytes Absolute Auto 0.8 K/mm3 (0.1-0.6); Monocytes Percent Auto 2.5 % (2.6-8.5); Neutrophils Absolute Auto 28.3 K/mm3 (1.3-6.7); Neutrophils Percent Auto 93.3 % (45.5-73.1); Platelet Count Result 370 k/mm3 (150-375); Red Blood Count 3.55 M/mm3 (4.6-6.20); Red Cell Distribution Width 13.5 % (11.5-14.5); White Blood Count 30.3 K/mm3 (4.5-10.0)
[2023-07-06 07:32] LABS: Anion Gap 9 mmol/L (4-12); Blood Urea Nitrogen 26 mg/dL (9-20); Calcium 8.2 mg/dL (8.4-10.2); Carbon Dioxide 26 mmol/L (22-30); Chloride 102 mmol/L (98-107); Estimated CRCL calculation 68 ml/min; Estimated Glomerular Filt Rate > 60; Glucose 187 mg/dL (65-110); Magnesium 1.9 mg/dL (1.6-2.3); Partial Thromboplastin Time 64.6 Seconds (22.3-36.8); Potassium 3.7 mmol/L (3.4-5.0); Sodium 137 mmol/L (137-145)
[2023-07-06] MEDS: HEPARIN SODIUM 5,000 UNITS/ML VIAL 3000 UNITS IV PUSH (08:17)
[2023-07-06] MEDS: AMIODARONE 360 MG/D5W 200 ML 360 MG/200 ML BAG 16.67 MG IV CONT (10:48)
[2023-07-06] MEDS: LIDOCAINE 5% PATCH 1 PATCH TOPICAL (12:00)
[2023-07-06] MEDS: CEFEPIME 2 GM/NS 50 ML 2 GM/50 ML BAG IVPB (12:10)
--- NOTE | 2023-07-06 12:57 | PM.CNCAR ---
Assessment and Plan Assessment and plan (1) CHF (congestive heart failure): Code(s): I50.9 - Heart failure, unspecified Status: Acute Assessment and Plan: Pulmonary edema vs. pneumonia on CXR. With overall clinical picture, pneumonia more likely. No peripheral edema. He received two doses of IV furosemide last night. For now, will hold off on further diuresis. (2) Acute hypoxic respiratory failure: Code(s): J96.01 - Acute respiratory failure with hypoxia Status: Acute Assessment and Plan: As above. Secondary to pneumonia. On BiPAP now. (3) Pneumonia: Code(s): J18.9 - Pneumonia, unspecified organism Status: Acute Assessment and Plan: Abx and management per hospitalist. (4) Elevated troponin: Code(s): R79.89 - Other specified abnormal findings of blood chemistry Status: Acute Assessment and Plan: His troponin levels are elevated but have trended down. This probably represents demand ischemia vs. ACS/NSTEMI. Initially some concern for ST elevations on initial EKG, but reviewed by dairy hand last evening and no STEMI seen. Repeat an EKG now. Continue medical management. (5) Afib: Code(s): I48.91 - Unspecified atrial fibrillation Status: Acute Assessment and Plan: Had atrial fibrillation with RVR last night and was placed on amiodarone drip with subsequent conversion to sinus rhythm. He remains in sinus rhythm now. Unable to take p.o. medications at this time because of BiPAP, so continue amiodarone drip for now. History of Present Illness History of Present Illness Consult date/time: 07/06/23 12:57 Requesting physician: Nando Tirado MD Consult reason: Other (elevated troponin) Reason For Visit: Pneumonia,Hypoxia Narrative: Rafat Johnston is a 77-year-old male with paroxysmal atrial fibrillation, chronic diastolic heart failure, dyslipidemia, hypertension, dementia, and COPD. 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 He presents to the hospital because of shortness of breath. According to the medical record, he was brought to the emergency department from his nursing residence where he was noted to become acutely short of breath. At the time of my evaluation, patient is on continuous BiPAP and is briefly responsive with eye opening only with sternal rub. Therefore, I am unable to obtain history directly from the patient and the majority of this history is been taken from the electronic medical record and nursing staff. Apparently when he arrived he was alert and responsive but overnight he declined. Troponins have been sampled and are elevated which is why cardiology has been asked to see him. Review of Systems Review of Systems: ROS unobtainable: Yes unobtainable due to medical condition and unobtainable due to mental status PMFSH Past Medical History Medical History Afib Chronic left SI joint pain COPD (chronic obstructive pulmonary disease) Dementia Dyslipidemia Essential (primary) hypertension GERD without esophagitis History of colon polyps Hx of non-ST elevation myocardial infarction (NSTEMI) Left hip pain Left shoulder pain Osteoarthritis Paroxysmal A-fib Tendonitis of left rotator cuff Trochanteric bursitis, left hip Surgical History Surgical History History of cardioversion 05/2017 and 10/2019 History of eye surgery (~1950) Hx of tonsillectomy (~1955) Family History Family History Mother Alzheimer disease Father Alzheimer disease Social History Social History Smoking packs per day: 0.5 Smoking cigarettes per day: 10.0 Years smoked: 3 Smoking pack-years: 1.50 Smoking status: Unknown if ever smoked Smoking end date: 02/19/85 Alcohol intake: never Substance use: never Substance use type: does not use Living arrangements: assisted living Additional living arrangements comments: at [facility] Occupation/Education: retired Gender identity (if verbalized by the patient): Male Sexual Orientation (if Verbalized by the Patient): Straight or Heterosexual Spiritual care concerns: No Meds Home Medications and Allergies Home Medications Medication Instructions Recorded Confirmed Type amiodarone 200 mg tablet 200 mg PO DAILY 11/18/19 07/05/23 History ferrous sulfate 325 mg (65 mg 325 mg PO DAILY 11/18/19 07/05/23 History iron) tablet multivitamin,lo-wsuk-hllazkyw 1 tablet PO DAILY 11/18/19 07/05/23 History (Complete Multivitamin tablet) docusate sodium 100 mg capsule 100 mg PO DAILY 03/02/20 07/05/23 History (Colace) albuterol sulfate 90 mcg/actuation 2 puff inhalation Q4H PRN 03/04/20 07/05/23 Rx aerosol inhaler (Proventil HFA) shortness of breath or wheezing #8.5 grams pravastatin 80 mg tablet 80 mg PO DAILY 09/01/20 07/05/23 History omeprazole 40 mg capsule,delayed 40 mg PO DAILY #90 caps 05/09/21 07/05/23 Rx release cholecalciferol (vitamin D3) 50 50 mcg PO DAILY #90 tabs 09/06/21 07/05/23 Rx mcg (2,000 unit) tablet memantine 10 mg tablet (Namenda) 10 mg PO BID 09/06/21 07/05/23 History hydroxyzine pamoate 25 mg capsule 25 mg PO TID Anxiety #270 caps 10/14/21 07/05/23 Rx furosemide 20 mg tablet 20 mg PO DAILY 11/11/21 07/05/23 History metoprolol succinate 25 mg 25 mg PO DAILY 11/11/21 07/05/23 History tablet,extended release 24 hr acetaminophen 500 mg tablet 1,000 mg PO TID pain 05/04/22 07/05/23 History (Tylenol Extra Strength) lidocaine 5 % topical patch 1 patch topical DAILY 05/04/22 07/05/23 History sertraline 50 mg tablet 50 mg PO DAILY 05/04/22 07/05/23 History glycopyrrolate 9 mcg-formoterol 2 inh inhalation BID #10.7 grams 07/25/22 07/05/23 Rx 4.8 mcg HFA aerosol inhaler (Bevespi Aerosphere) potassium chloride 20 mEq 20 meq PO .QOD 09/06/22 07/05/23 History tablet,extended release(part/cryst) tramadol 50 mg tablet 50 mg PO TID 09/06/22 07/05/23 History sertraline 25 mg tablet 25 mg PO DAILY 11/09/22 07/05/23 History apixaban 5 mg tablet (Eliquis) 5 mg PO BID #60 tabs 05/22/23 07/05/23 Rx doxycycline hyclate 50 mg capsule 50 mg PO DAILY 05/16/24 05/16/24 History tuberculin PPD 5 tub. unit/0.1 mL 0.1 ml intradermal ONCE 07/05/23 07/05/23 History intradermal injection solution (Tubersol) Allergies Allergy/AdvReac Type Severity Reaction Status Date / Time No Known Allergies Allergy Verified 07/05/23 17:09 Vital Signs Vital Signs - 24 hr 07/05/23 15:39 07/05/23 15:50 07/05/23 16:07 Temperature 36.9 C Pulse Rate 87 86 86 Respiratory Rate 29 H 30 H 24 H Blood Pressure 121/68 Pulse Oximetry 95 96 Oxygen Delivery EMS-CPAP BiPAP Oxygen Flow Rate 15 Fraction of Inspired Oxygen 07/05/23 16:21 07/05/23 17:00 07/05/23 17:51 Temperature Pulse Rate 89 91 Respiratory Rate 29 H 21 H Blood Pressure 149/94 H Pulse Oximetry 96 93 Oxygen Delivery BiPAP Oxygen Flow Rate Fraction of Inspired Oxygen 07/05/23 17:54 07/05/23 17:31 07/05/23 17:46 Temperature Pulse Rate 90 88 93 Respiratory Rate 34 H 25 H 25 H Blood Pressure 116/76 101/74 Pulse Oximetry 96 95 96 Oxygen Delivery BiPAP Oxygen Flow Rate Fraction of Inspired Oxygen 07/05/23 18:01 07/05/23 18:31 07/05/23 18:46 Temperature Pulse Rate 90 92 94 Respiratory Rate 24 H 27 H 27 H Blood Pressure 126/87 124/78 125/85 Pulse Oximetry 97 95 95 Oxygen Delivery Oxygen Flow Rate Fraction of Inspired Oxygen 07/05/23 19:01 07/05/23 19:16 07/05/23 20:02 Temperature Pulse Rate 93 92 93 Respiratory Rate 31 H 25 H 18 Blood Pressure 121/73 119/72 98/69 L Pulse Oximetry 94 96 98 Oxygen Delivery Oxygen Flow Rate Fraction of Inspired Oxygen 07/05/23 20:20 07/05/23 20:34 07/05/23 20:46 Temperature Pulse Rate 92 89 Respiratory Rate 40 H 37 H Blood Pressure 129/83 Pulse Oximetry 94 94 Oxygen Delivery BiPAP Oxygen Flow Rate Fraction of Inspired Oxygen 07/05/23 20:30 07/05/23 20:51 07/05/23 21:00 Temperature 36.4 C Pulse Rate 89 90 93 Respiratory Rate 33 H 38 H 37 H Blood Pressure 131/87 Pulse Oximetry 97 93 Oxygen Delivery BiPAP Oxygen Flow Rate Fraction of Inspired Oxygen 07/05/23 22:19 07/05/23 21:21 07/05/23 23:04 Temperature Pulse Rate 90 Respiratory Rate 30 H Blood Pressure Pulse Oximetry 92 93 92 Oxygen Delivery BiPAP BiPAP BiPAP Oxygen Flow Rate Fraction of Inspired Oxygen 40 40 07/05/23 23:50 07/06/23 00:00 07/06/23 05:00 Temperature 36.3 C L Pulse Rate 95 145 H Respiratory Rate 37 H Blood Pressure 138/85 Pulse Oximetry 90 87 L Oxygen Delivery BiPAP Oxygen Flow Rate Fraction of Inspired Oxygen 50 07/06/23 03:00 07/06/23 01:43 07/06/23 01:43 Temperature Pulse Rate 98 91 Respiratory Rate 44 H 44 H Blood Pressure Pulse Oximetry 86 L 98 Oxygen Delivery BiPAP BiPAP Oxygen Flow Rate Fraction of Inspired Oxygen 55 07/06/23 01:50 07/06/23 04:00 07/05/23 22:00 Temperature 36.3 C L Pulse Rate 101 H 102 H 89 Respiratory Rate 44 H 30 H Blood Pressure 120/71 Pulse Oximetry 93 Oxygen Delivery Oxygen Flow Rate Fraction of Inspired Oxygen 07/06/23 00:00 07/06/23 02:00 07/06/23 04:00 Temperature Pulse Rate 105 H 104 H 107 H Respiratory Rate Blood Pressure Pulse Oximetry Oxygen Delivery Oxygen Flow Rate Fraction of Inspired Oxygen 07/06/23 06:00 07/05/23 21:07 07/06/23 04:30 Temperature Pulse Rate 102 H 96 141 H Respiratory Rate Blood Pressure Pulse Oximetry Oxygen Delivery Oxygen Flow Rate Fraction of Inspired Oxygen 07/06/23 06:00 07/06/23 06:15 07/06/23 06:28 Temperature 36.4 C Pulse Rate 100 102 H 99 Respiratory Rate 35 H 29 H Blood Pressure 117/77 117/77 Pulse Oximetry 93 93 Oxygen Delivery BiPAP Oxygen Flow Rate Fraction of Inspired Oxygen 07/06/23 07:40 07/06/23 07:55 07/06/23 07:57 Temperature Pulse Rate 95 90 Respiratory Rate 39 H 37 H Blood Pressure Pulse Oximetry 94 93 Oxygen Delivery BiPAP BiPAP Oxygen Flow Rate Fraction of Inspired Oxygen 55 07/06/23 07:58 07/06/23 08:00 07/06/23 08:00 Temperature 36.4 C Pulse Rate 95 92 Respiratory Rate 33 H Blood Pressure 107/69 Pulse Oximetry 95 94 Oxygen Delivery BiPAP Oxygen Flow Rate Fraction of Inspired Oxygen 55 07/06/23 10:00 07/06/23 08:00 07/06/23 10:10 Temperature Pulse Rate 99 92 95 Respiratory Rate Blood Pressure 107/69 120/75 Pulse Oximetry Oxygen Delivery Oxygen Flow Rate Fraction of Inspired Oxygen 07/06/23 10:00 07/06/23 10:48 07/06/23 10:48 Temperature 36.6 C Pulse Rate 95 91 93 Respiratory Rate 39 H Blood Pressure 120/75 115/73 115/73 Pulse Oximetry 91 Oxygen Delivery Oxygen Flow Rate Fraction of Inspired Oxygen 07/06/23 12:02 07/06/23 12:00 Temperature 36.3 C L Pulse Rate 100 100 Respiratory Rate 37 H Blood Pressure 138/85 138/85 Pulse Oximetry 92 Oxygen Delivery Oxygen Flow Rate Fraction of Inspired Oxygen Exam Const: General: comfortable and no acute distress; No alert Orientation/consciousness: No patient oriented x3 HENMT: Head: normal to inspection Other: BiPAP mask in place Eyes: General: appearance abnormal, both eyes (periorbital ecchymosis) Pupils: Equal, round and reactive pupils present Neck: Neck: normal visual inspection, supple and no JVD Carotids: normal carotid upstroke Resp: Effort & Inspection: abnormal respiratory effort Auscultation: not clear to auscultation bilaterally and rhonchi Cardio: Rate: regular rate Rhythm: regular rhythm Heart sounds: S1 normal heart sound present, S2 normal heart sound present and no murmurs GI: Auscultation: normal bowel sounds Skin: General skin exam: normal color Neuro: General: No patient oriented x3 Cranial nerves: Yes Equal, round and reactive pupils present Extrem: General: normal to inspection Psych: Appearance: grossly normal Mental Status: mental status grossly abnormal Results Labs and Meds 07/06/23 06:54 07/06/23 06:54 Lab results: Cardiac Enzymes 07/05/23 07/05/23 07/05/23 Range/Units 16:57 19:24 22:32 AST 100 H (17-59) U/L Troponin I 1.500 H* 1.280 H* 1.250 H* (0.000-0.034) ng/mL Coagulation 07/05/23 07/06/23 07/06/23 Range/Units 15:58 00:39 06:54 PT 20.3 H 18.4 H (11.1-14.7) Seconds APTT 35.2 46.4 H 64.6 H (22.3-36.8) Seconds CBC 07/05/23 07/06/23 Range/Units 15:57 06:54 WBC 27.6 H 30.3 H (4.5-10.0) K/mm3 RBC 3.50 L 3.55 L (4.6-6.20) M/mm3 Hgb 10.9 L 11.1 L (14.0-18.0) g/dL Hct 34.2 L 33.8 L (42.0-52.0) % Plt Count 353 370 (150-375) k/mm3 Lymph # (Auto) 1.73 0.81 L (0.9-3.2) K/mm3 [place] # (Auto) 1.4 H 0.8 H (0.1-0.6) K/mm3 Eos # (Auto) 0.0 0.0 (0-0.3) K/mm3 Baso # (Auto) 0.0 0.0 (0.0-0.1) K/mm3 Comprehensive Metabolic Panel 07/05/23 07/06/23 Range/Units 16:57 06:54 Sodium 139 137 (137-145) mmol/L Potassium 3.6 3.7 (3.4-5.0) mmol/L Chloride 105 102 (98-107) mmol/L Carbon Dioxide 25 26 (22-30) mmol/L BUN 27 H D 26 H (9-20) mg/dL Creatinine 0.70 0.70 (0.7-1.3) mg/dL Glucose 196 H 187 H (65-110) mg/dL Calcium 8.7 8.2 L (8.4-10.2) mg/dL AST 100 H (17-59) U/L ALT 62 H (6-50) U/L Alkaline Phosphatase 134 H (38-126) U/L Total Protein 7.0 (6.3-8.2) g/dL Albumin 3.5 (3.5-5.1) g/dL Intake and Output 07/05/23 07/06/23 07/06/23 23:59 07:59 15:59 Intake Total 300 98.4 429.8 Output Total 950 Balance 300 -851.6 429.8 Intake: IV 300 98.4 429.8 Amiodarone 360 mg/D5w 200 ml 41.7 178.9 360 mg In 200 ml @ 0.5 MG/MIN 16.667 mls/hr IV CONT .Q12H [facility] Rx#:[id number] Heparin Sod/D5w 100 Units/ml 25 56.7 250.9 ,000 units In 250 ml @ 1,100 UNITS/HR 11 mls/hr IV CONT . [id number] [facility] Rx#:[id number] Azithromycin 500 mg/Ns 250 ml 250 500 mg In 250 ml @ 250 mls/hr IVPB ONCE STA Rx#:[id number] cefTRIAXone 1 GM/NS 50 ML 1 gm 50 In 50 ml @ 100 mls/hr IVPB ONCE STA Rx#:[id number] Output: Urine 950 Other: # Incontinent Voids 6 # Urine Diapers 6 Patient Weight 07/06/23 23:59 Weight 63.4 kg
[2023-07-06 13:43] LABS: MRSA (PCR) NOT DETECTED (NOT DETECTE)
--- NOTE | 2023-07-06 14:07 | ECG_ITS ---
SEE SCANNED COPY FOR CONFIRMED REPORT MTDD
--- NOTE | 2023-07-06 14:28 | PCSTNOTE ---
BSE cannot be completed this afternoon as patient is on continuous BiPAP according to ANIRUDH Nieto, and . Sunday Speech Therapist may try to evaluate tomorrow.
--- NOTE | 2023-07-06 14:39 | P.PNIM_ITS ---
Progress Note: A&P Assessment and Plan (1) Acute hypoxic respiratory failure: Code(s): J96.01 - Acute respiratory failure with hypoxia Status: Acute (2) CHF (congestive heart failure): Code(s): I50.9 - Heart failure, unspecified Status: Acute (3) Pneumonia: Code(s): J18.9 - Pneumonia, unspecified organism Status: Acute (4) Elevated troponin: Code(s): R79.89 - Other specified abnormal findings of blood chemistry Status: Acute (5) Dysphagia, unspecified: Code(s): R13.10 - Dysphagia, unspecified Status: Acute (6) Advancing dementia: Code(s): F03.90 - Unspecified dementia, unspecified severity, without behavioral disturbance, psychotic disturbance, mood disturbance, and anxiety Status: Acute (7) Afib: Code(s): I48.91 - Unspecified atrial fibrillation Status: Acute (8) Interstitial lung disease: Code(s): J84.9 - Interstitial pulmonary disease, unspecified Status: Acute (9) Sepsis: Code(s): A41.9 - Sepsis, unspecified organism Status: Acute Plan This is a pleasant 77-year-old male with a past medical history atrial fibrillation on Eliquis, prior tobacco use, COPD, interstitial lung disease (followed by Dr. Arndt), noted 14 mm nodule in superior segment of right lower lobe elected to not be investigated, GERD, hypertension, hyperlipidemia, dementia, history of NSTEMI, degenerative joint disease. Three weeks prior to admission he was living with his Rocio in assisted living at [facility]. 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 The history is taken from the as well as Anisa Ferguson RN who is their aging life home health care social worker and is very helpful in discussions and helping the make decisions. Apparently he has fallen multiple times at his new permanent nursing facility. He was not brought in during those times. Finally he was transferred to [facility] via EMS after he became short of breath. During this time he was placed on oxygen and due to continued hypoxia was placed on a BiPAP. [facility] evaluation demonstrated respiratory failure with respiratory distress requiring BiPAP. ABG demonstrated respiratory alkalosis. Troponin was mildly elevated an EKG noted some ST changes. Cardiology was consulted. The patient had sepsis in addition to his acute hypoxic respiratory failure with a lactic acid 2.7 and WBC count 30. Chest x-ray demonstrated bilateral pneumonia versus edema. Patient was administrated ceftriaxone and azithromycin and admitted to the IMU on 07/05/2023. Over the 1st night of his admission the patient became extremely agitated and multiple doses of Ativan and morphine were administered. Upon evaluation on 07/05 in the morning the patient was obtunded but eventually he became alert. In fact, he sat up in bed on the BiPAP and verbalized he just wants to go home. Subsequently, a conversation was held in front of the patient with his Rocio and the family's aging life home health care social worker Germán Ferguson RN as well as the patient's granddaughter and son at bedside. They have been following with Dr. Arndt for his interstitial lung disease. As mentioned above a 14 mm nodule was seen and they elected not to further investigate due to the patient's advancing dementia. As such, they would like the patient to be treated for this pneumonia while hospice is consulted and they prefer him to be returns to the care home facility with hospice. The patient is currently DNR and they are okay with BiPAP. In fact, we attempted to take off his BiPAP and he desaturated to 78% on high-flow nasal cannula 10 L. These conversations were held in front of the patient he had no objection. He follows the guidance of his . In fact, only thing he would tell me is that he wants to go home. Acute hypoxic respiratory failure -he failed to be weaned off of BiPAP on 07/05. He has rapid respirations likely due to his already compromised respiratory status. -continue scheduled nebs. Continue Solu-Medrol q.6 hours. -continue BiPAP continuous. NPO. Speech eval if he can be weaned. -check ABG in the morning. The chest x-ray or CT as needed. Community-acquired pneumonia superimposed on interstitial lung disease and COPD -ceftriaxone and azithromycin administered on admission. On 07/05 change ce ftriaxone to cefepime for Pseudomonas coverage. MRSA PCR screen negative. -check mycoplasma Legionella and pneumococcal antibody/antigens. Pending blood cultures. Sputum cultures ordered but he is not producing at the moment. Severe sepsis without shock -lactic acid 2.7 on admission. Recheck now. -he received Lasix on admission. He appears euvolemic. Hold off on diuresis. Multiple falls at care home facility/ecchymosis of the left periorbital region -CT scan of the head facial structures and C-spine without contrast. Elevated troponin -currently flat. There are some ST changes over cardiology felt this was not a STEMI. Patient denies any chest pain. Continue to monitor and follow Cardiology recommendations. AFib with RVR -on 1st night of admission patient developed RVR. Takes amiodarone and metoprolol at home. Amiodarone drip was started. Will continue that while he is NPO. History of hypertension -currently at goal. Aside from amiodarone hold his home antihypertensives and continue to monitor. Advancing dementia -lengthy family discussion held as described above. Treat his current inpatient issue chest pneumonia. Attempt to wean from BiPAP and anticipate discharging the patient back to care home facility with hospice. Hospice consult already placed. Educated the family the risk of using BiPAP if he becomes obtunded again. FEN: Home medications placed on hold. P.o.. Saline lock IV. GI prophylaxis: Protonix 40 mg IV q.a.m. DVT prophylaxis: Lovenox 40 mg subQ daily Lines: Peripheral IV Code Status: DNR. Maximum therapy with BiPAP. Continue medical management. Dispo: Guarded condition in IMU. Hospice consult placed. Goal to discharge patient back to SNF with hospice Subjective Date/time seen: 07/06/23 14:39 Interval history: Patient received multiple doses of Ativan and morphine overnight. On evaluation in the morning he was obtunded on the BiPAP. Although able to wake him up on loud verbal command. Later on revisited the patient around noon with multiple family members and the patient's life home health care social worker RN present. The further detail in the assessment and plan. The patient himself is not quite interested in answering questions and he only wants to go home. Review of Systems Review of Systems: All systems reviewed & are unremarkable except as noted in HPI and below (Subjective) Exam Const: General: comfortable and no acute distress Other: A&O x2. Rapid shallow breathing on the BiPAP. Follows commands. Eyes: Other: Sclera normal. Ecchymosis left periorbital region. No bony abnormalities identified. Neck: Neck: supple Resp: Other: Respiratory distress. Rhonchi and dry crackles left greater than right. No wheezing. Cardio: Rate: tachycardic Rhythm: abnormal rhythm Heart sounds: no gallops, no murmurs and no rubs GI: GI Palp: Yes Soft to palpation and No Tenderness to palpation present (GI) Neuro: Other: Deferred. Patient unwilling to participate with complete examination. Extrem: General: no edema Objective Data Vital Signs Vital Signs: Vital Signs - 24 hr 07/05/23 15:39 07/05/23 15:50 07/05/23 16:07 Temperature 98.5 F Pulse Rate 87 86 86 Respiratory Rate 29 H 30 H 24 H Blood Pressure 121/68 Pulse Oximetry 95 96 Oxygen Delivery EMS-CPAP BiPAP Oxygen Flow Rate 15 Fraction of Inspired Oxygen 07/05/23 16:21 07/05/23 17:00 07/05/23 17:51 Temperature Pulse Rate 89 91 Respiratory Rate 29 H 21 H Blood Pressure 149/94 H Pulse Oximetry 96 93 Oxygen Delivery BiPAP Oxygen Flow Rate Fraction of Inspired Oxygen 07/05/23 17:54 07/05/23 17:31 07/05/23 17:46 Temperature Pulse Rate 90 88 93 Respiratory Rate 34 H 25 H 25 H Blood Pressure 116/76 101/74 Pulse Oximetry 96 95 96 Oxygen Delivery BiPAP Oxygen Flow Rate Fraction of Inspired Oxygen 07/05/23 18:01 07/05/23 18:31 07/05/23 18:46 Temperature Pulse Rate 90 92 94 Respiratory Rate 24 H 27 H 27 H Blood Pressure 126/87 124/78 125/85 Pulse Oximetry 97 95 95 Oxygen Delivery Oxygen Flow Rate Fraction of Inspired Oxygen 07/05/23 19:01 07/05/23 19:16 07/05/23 20:02 Temperature Pulse Rate 93 92 93 Respiratory Rate 31 H 25 H 18 Blood Pressure 121/73 119/72 98/69 L Pulse Oximetry 94 96 98 Oxygen Delivery Oxygen Flow Rate Fraction of Inspired Oxygen 07/05/23 20:20 07/05/23 20:34 07/05/23 20:46 Temperature Pulse Rate 92 89 Respiratory Rate 40 H 37 H Blood Pressure 129/83 Pulse Oximetry 94 94 Oxygen Delivery BiPAP Oxygen Flow Rate Fraction of Inspired Oxygen 07/05/23 20:30 07/05/23 20:51 07/05/23 21:00 Temperature 97.6 F Pulse Rate 89 90 93 Respiratory Rate 33 H 38 H 37 H Blood Pressure 131/87 Pulse Oximetry 97 93 Oxygen Delivery BiPAP Oxygen Flow Rate Fraction of Inspired Oxygen 07/05/23 22:19 07/05/23 21:21 07/05/23 23:04 Temperature Pulse Rate 90 Respiratory Rate 30 H Blood Pressure Pulse Oximetry 92 93 92 Oxygen Delivery BiPAP BiPAP BiPAP Oxygen Flow Rate Fraction of Inspired Oxygen 40 40 07/05/23 23:50 07/06/23 00:00 07/06/23 05:00 Temperature 97.4 F L Pulse Rate 95 145 H Respiratory Rate 37 H Blood Pressure 138/85 Pulse Oximetry 90 87 L Oxygen Delivery BiPAP Oxygen Flow Rate Fraction of Inspired Oxygen 50 07/06/23 03:00 07/06/23 01:43 07/06/23 01:43 Temperature Pulse Rate 98 91 Respiratory Rate 44 H 44 H Blood Pressure Pulse Oximetry 86 L 98 Oxygen Delivery BiPAP BiPAP Oxygen Flow Rate Fraction of Inspired Oxygen 55 07/06/23 01:50 07/06/23 04:00 07/05/23 22:00 Temperature 97.3 F L Pulse Rate 101 H 102 H 89 Respiratory Rate 44 H 30 H Blood Pressure 120/71 Pulse Oximetry 93 Oxygen Delivery Oxygen Flow Rate Fraction of Inspired Oxygen 07/06/23 00:00 07/06/23 02:00 07/06/23 04:00 Temperature Pulse Rate 105 H 104 H 107 H Respiratory Rate Blood Pressure Pulse Oximetry Oxygen Delivery Oxygen Flow Rate Fraction of Inspired Oxygen 07/06/23 06:00 07/05/23 21:07 07/06/23 04:30 Temperature Pulse Rate 102 H 96 141 H Respiratory Rate Blood Pressure Pulse Oximetry Oxygen Delivery Oxygen Flow Rate Fraction of Inspired Oxygen 07/06/23 06:00 07/06/23 06:15 07/06/23 06:28 Temperature 97.6 F Pulse Rate 100 102 H 99 Respiratory Rate 35 H 29 H Blood Pressure 117/77 117/77 Pulse Oximetry 93 93 Oxygen Delivery BiPAP Oxygen Flow Rate Fraction of Inspired Oxygen 07/06/23 07:40 07/06/23 07:55 07/06/23 07:57 Temperature Pulse Rate 95 90 Respiratory Rate 39 H 37 H Blood Pressure Pulse Oximetry 94 93 Oxygen Delivery BiPAP BiPAP Oxygen Flow Rate Fraction of Inspired Oxygen 55 07/06/23 07:58 07/06/23 08:00 07/06/23 08:00 Temperature 97.6 F Pulse Rate 95 92 Respiratory Rate 33 H Blood Pressure 107/69 Pulse Oximetry 95 94 Oxygen Delivery BiPAP Oxygen Flow Rate Fraction of Inspired Oxygen 55 07/06/23 10:00 07/06/23 08:00 07/06/23 10:10 Temperature Pulse Rate 99 92 95 Respiratory Rate Blood Pressure 107/69 120/75 Pulse Oximetry Oxygen Delivery Oxygen Flow Rate Fraction of Inspired Oxygen 07/06/23 10:00 07/06/23 10:48 07/06/23 10:48 Temperature 97.8 F Pulse Rate 95 91 93 Respiratory Rate 39 H Blood Pressure 120/75 115/73 115/73 Pulse Oximetry 91 Oxygen Delivery Oxygen Flow Rate Fraction of Inspired Oxygen 07/06/23 12:02 07/06/23 12:00 07/06/23 13:24 Temperature 97.3 F L Pulse Rate 100 100 99 Respiratory Rate 37 H 37 H Blood Pressure 138/85 138/85 Pulse Oximetry 92 Oxygen Delivery Oxygen Flow Rate Fraction of Inspired Oxygen 07/06/23 14:19 Temperature Pulse Rate Respiratory Rate 39 H Blood Pressure Pulse Oximetry 95 Oxygen Delivery BiPAP Oxygen Flow Rate Fraction of Inspired Oxygen Intake/Output Intake/Output: Intake & Output 07/03/23 07/04/23 07/05/23 07/06/23 23:59 23:59 23:59 23:59 Intake Total 300 528.2 Output Total 950 Balance 300 -421.8 Meds/Results Medications: Active Medications Generic Name Dose Route Start Last Admin Trade Name Freq PRN Reason Stop Dose Admin Albuterol 2.5 mg 07/05/23 20:00 07/06/23 13:24 Albuterol Sulfate Neb 2.5 Mg/3 Ml Inh INHALATION 2.5 mg Q6HRT [facility] Administration Albuterol 2 puff 07/06/23 00:41 Albuterol Sulfate (*Sp) Aerosol 1 Puff INHALATION Q4H PRN shortness of breath or wheezing Amiodarone HCl 200 mg 07/06/23 08:00 07/06/23 04:59 Amiodarone Hcl 200 Mg Tablet PO Not Given DAILY@0800 [facility] Docusate Sodium 100 mg 07/06/23 09:00 07/06/23 08:04 Docusate Sodium 100 Mg Capsule PO Not Given DAILY [facility] Enoxaparin Sodium 40 mg 07/07/23 09:00 Enoxaparin 40 Mg/0.4 Ml Syringe SUB-Q DAILY [facility] Ferrous Sulfate 325 mg 07/06/23 09:00 07/06/23 08:04 Ferrous Sulfate [address] BY MOUTH Not Given DAILY [facility] Hydroxyzine Pamoate 25 mg 07/06/23 09:00 Hydroxyzine Pamoate 25 Mg Capsule PO TID [facility] Azithromycin 500 mg in 250 mls @ 250 mls/hr 07/05/23 18:00 07/05/23 20:25 Zithromax IVPB Not Given Q24H [facility] Amiodarone HCl/Dextrose 360 mg in 200 mls @ 16.667 mls/hr 07/06/23 10:30 07/06/23 12:02 Nexterone 360 Mg/D5w 200 Ml IV CONT 0.5 mg/min .Q12H [facility] 16.67 mls/hr Infusion 0.5 MG/MIN Cefepime HCl 2 gm in 50 mls @ 100 mls/hr 07/06/23 13:00 07/06/23 12:10 Maxipime 2 Gm/Ns 50 Ml IVPB 100 mls/hr Q8HR [facility] Administration Lidocaine 1 patch 07/06/23 09:00 07/06/23 12:00 Lidocaine 5% Patch TOPICAL 1 patch DAILY [facility] Administration Memantine 10 mg 07/06/23 09:00 07/06/23 08:04 Memantine 10 Mg Tablet PO Not Given BID [facility] Methylprednisolone Sodium Succinate 60 mg 07/06/23 06:00 07/06/23 12:00 Methylprednisolone Sod Succ 125 Mg Vial IV PUSH 60 mg Q6HR [facility] Administration Metoprolol Succinate 25 mg 07/06/23 09:00 07/06/23 08:04 Metoprolol Succinate Ext Rel 25 Mg Tabcr PO Not Given DAILY [facility] Pantoprazole Sodium 40 mg 07/06/23 09:00 07/06/23 08:04 Pantoprazole 40 Mg Tablet PO Not Given BID [facility] Pantoprazole Sodium 40 mg 07/07/23 09:00 Pantoprazole Sodium Iv 40 Mg Vial IV PUSH QAM [facility] Pravastatin Sodium 80 mg 07/06/23 09:00 07/06/23 08:04 Pravastatin Sodium 20 Mg Tablet PO Not Given DAILY [facility] Sertraline HCl 75 mg 07/06/23 09:00 07/06/23 08:04 Sertraline Hcl 25 Mg Tablet PO Not Given DAILY [facility] Umeclidinium/Vilanterol 1 puff 07/06/23 08:00 07/06/23 07:50 Umeclidinium/Vilanterol 62.5-25 Mcg Ellipta IN[facility]ATION [facility] Vitamin D 2,000 units 07/06/23 09:00 07/06/23 08:04 Cholecalciferol 1,000 Units Tablet PO Not Given DAILY [facility] Radiology Results: ITS Impressions Chest X-Ray 07/05/23 16:53 IMPRESSION: 1. Diffuse interstitial and airspace opacities throughout both lungs which could represent moderate to severe pulmonary edema or pneumonia. 2. Small right pleural effusion. 3. Large hiatal hernia. Labs Labs: Laboratory Results - last 24 hr 07/05/23 07/05/23 07/05/23 15:57 15:58 16:02 WBC 27.6 H RBC 3.50 L Hgb 10.9 L Hct 34.2 L MCV 97.7 MCH 31.1 MCHC 31.9 L RDW 13.6 Plt Count 353 MPV 9.2 Immature Gran % (Auto) 1.0 H Neut % (Auto) 87.5 H Lymph % (Auto) 6.3 L [place] % (Auto) 5.1 Eos % (Auto) 0.0 Baso % (Auto) 0.1 L Lymph # (Auto) 1.73 [place] # (Auto) 1.4 H Eos # (Auto) 0.0 Baso # (Auto) 0.0 Abs Immat Gran (auto) 0.28 H Absolute Neuts (auto) 24.1 H Absolute Nucleated RBC 0.000 Nucleated RBC % 0.0 PT 20.3 H INR 1.6 APTT 35.2 Puncture Site ABG pH ABG pCO2 ABG pO2 ABG PO2/FiO2 Ratio ABG HCO3 ABG O2 Saturation ABG O2 Content ABG Base Excess A-a Gradient Oxyhemoglobin Carboxyhemoglobin Methemoglobin Reduced Hemoglobin Total Hemoglobin O2 Delivery Device O2 Liters/Min Vent Rate FiO2 Expiratory Pressure Inspiratory Pressure Sodium Potassium Chloride Carbon Dioxide Anion Gap BUN Creatinine Estim Creat Clear Calc Estimated GFR Glucose Lactic Acid 2.7 H Calcium Magnesium Total Bilirubin AST ALT Alkaline Phosphatase Troponin I NT-Pro-B Natriuret Pep Total Protein Albumin Nasal MRSA (PCR) Influenza A (RT-PCR) Influenza B (RT-PCR) RSV (RT-PCR) SARS-CoV-2 RNA (RT-PCR) 07/05/23 07/05/23 07/05/23 16:18 16:57 17:20 WBC RBC Hgb Hct MCV MCH MCHC RDW Plt Count MPV Immature Gran % (Auto) Neut % (Auto) Lymph % (Auto) [place] % (Auto) Eos % (Auto) Baso % (Auto) Lymph # (Auto) [place] # (Auto) Eos # (Auto) Baso # (Auto) Abs Immat Gran (auto) Absolute Neuts (auto) Absolute Nucleated RBC Nucleated RBC % PT INR APTT Puncture Site Left brachial ABG pH 7.461 H ABG pCO2 32.7 L ABG pO2 65.7 L ABG PO2/FiO2 Ratio 1.64 ABG HCO3 22.8 ABG O2 Saturation 94.2 L ABG O2 Content 14.7 L ABG Base Excess -0.5 A-a Gradient 181.9 Oxyhemoglobin 92.5 Carboxyhemoglobin 0.6 Methemoglobin 0.3 Reduced Hemoglobin 6.6 H Total Hemoglobin 11.3 L O2 Delivery Device Non-invasive vent O2 Liters/Min 0.0 Vent Rate 4 FiO2 40 Expiratory Pressure 6 Inspiratory Pressure 12 Sodium 139 Potassium 3.6 Chloride 105 Carbon Dioxide 25 Anion Gap 9 BUN 27 H D Creatinine 0.70 Estim Creat Clear Calc 75 Estimated GFR > 60 Glucose 196 H Lactic Acid Calcium 8.7 Magnesium Total Bilirubin 0.5 AST 100 H ALT 62 H Alkaline Phosphatase 134 H Troponin I 1.500 H* NT-Pro-B Natriuret Pep 14991 H Total Protein 7.0 Albumin 3.5 Nasal MRSA (PCR) Influenza A (RT-PCR) Negative Influenza B (RT-PCR) Negative RSV (RT-PCR) Negative SARS-CoV-2 RNA (RT-PCR) Negative 07/05/23 07/05/23 07/06/23 19:24 22:32 00:39 WBC RBC Hgb Hct MCV MCH MCHC RDW Plt Count MPV Immature Gran % (Auto) Neut % (Auto) Lymph % (Auto) [place] % (Auto) Eos % (Auto) Baso % (Auto) Lymph # (Auto) [place] # (Auto) Eos # (Auto) Baso # (Auto) Abs Immat Gran (auto) Absolute Neuts (auto) Absolute Nucleated RBC Nucleated RBC % PT 18.4 H INR 1.4 APTT 46.4 H Puncture Site ABG pH ABG pCO2 ABG pO2 ABG PO2/FiO2 Ratio ABG HCO3 ABG O2 Saturation ABG O2 Content ABG Base Excess A-a Gradient Oxyhemoglobin Carboxyhemoglobin Methemoglobin Reduced Hemoglobin Total Hemoglobin O2 Delivery Device O2 Liters/Min Vent Rate FiO2 Expiratory Pressure Inspiratory Pressure Sodium Potassium Chloride Carbon Dioxide Anion Gap BUN Creatinine Estim Creat Clear Calc Estimated GFR Glucose Lactic Acid 2.8 H Calcium Magnesium Total Bilirubin AST ALT Alkaline Phosphatase Troponin I 1.280 H* 1.250 H* NT-Pro-B Natriuret Pep Total Protein Albumin Nasal MRSA (PCR) Influenza A (RT-PCR) Influenza B (RT-PCR) RSV (RT-PCR) SARS-CoV-2 RNA (RT-PCR) 07/06/23 07/06/23 06:54 12:10 WBC 30.3 H RBC 3.55 L Hgb 11.1 L Hct 33.8 L MCV 95.2 MCH 31.3 MCHC 32.8 RDW 13.5 Plt Count 370 MPV 9.1 Immature Gran % (Auto) 1.4 H Neut % (Auto) 93.3 H Lymph % (Auto) 2.7 L [place] % (Auto) 2.5 L Eos % (Auto) 0.0 Baso % (Auto) 0.1 L Lymph # (Auto) 0.81 L [place] # (Auto) 0.8 H Eos # (Auto) 0.0 Baso # (Auto) 0.0 Abs Immat Gran (auto) 0.41 H Absolute Neuts (auto) 28.3 H Absolute Nucleated RBC 0.000 Nucleated RBC % 0.0 PT INR APTT 64.6 H Puncture Site ABG pH ABG pCO2 ABG pO2 ABG PO2/FiO2 Ratio ABG HCO3 ABG O2 Saturation ABG O2 Content ABG Base Excess A-a Gradient Oxyhemoglobin Carboxyhemoglobin Methemoglobin Reduced Hemoglobin Total Hemoglobin O2 Delivery Device O2 Liters/Min Vent Rate FiO2 Expiratory Pressure Inspiratory Pressure Sodium 137 Potassium 3.7 Chloride 102 Carbon Dioxide 26 Anion Gap 9 BUN 26 H Creatinine 0.70 Estim Creat Clear Calc 68 Estimated GFR > 60 Glucose 187 H Lactic Acid Calcium 8.2 L Magnesium 1.9 Total Bilirubin AST ALT Alkaline Phosphatase Troponin I NT-Pro-B Natriuret Pep Total Protein Albumin Nasal MRSA (PCR) Not detected Influenza A (RT-PCR) Influenza B (RT-PCR) RSV (RT-PCR) SARS-CoV-2 RNA (RT-PCR)
[2023-07-06 16:11] LABS: Lactic Acid Reflex 2.7 mmol/L (0.7-2.0)
[2023-07-06] MEDS: AZITHROMYCIN 500 MG/NS 250 ML 500 MG/250 ML BAG 250 MG IVPB (17:00)
[2023-07-06] MEDS: AMIODARONE 150 MG/D5W 100 ML 150 MG/100 ML BAG 600 MG IV CONT (17:32)
--- NOTE | 2023-07-06 17:35 | PC.NURSE ---
Pt ripped off BiPAP. RN to bedside. Pt's heart rate 120-130's, unable to obtain SpO2 reading. MD notified. Pt placed back on BiPAP. Heart rate sustains in the 120's. Pt having runs of V-tach. New order for another Amiodarone bolus now. RN unable to get pt's SpO2 above 83%. FiO2 increased to 80%. Pt SpO2 now reading 95% on 80% FiO2. MD updated with patient's change in condition.
[2023-07-06 19:00] LABS: Reflex Lactic Acid Yes or No Add Lactic
--- NOTE | 2023-07-06 19:56 | PC.NURSE ---
Patient's stated he would like to take the bipap off. He's uncomfortable. Respiratory rate on the bipap is 40. Rocio understands that removing him from the bipap could mean that he will pass away. Discussed the option of comfort care and morphine administration to help make the patient more comfortable as he passes. Awaiting return call from Lucinda WALDROP for further orders.
--- NOTE | 2023-07-06 20:48 | PM.EVENT ---
Event Note Event Note Event Note: Cross Coverage: Patient's elected to transition patient to comfort measures. Bedside RN discussed that comfort measures would mean ceasing treatment, infusions, antibiotics, and BiPAP while moving towards orders that are comfort focused to ease the process of dying. She verbalized understanding. Labs canceled and medications held. Will trial 2.5 mg of Valium IVP, did not tolerate Ativan well last night and became more agitated. Olanzapine ODT p.r.n. Atropine drops p.r.n. for secretions. Morphine p.r.n. for discomfort.
[2023-07-06] MEDS: MORPHINE SULFATE (*CRX) 2 MG/ML INJ IV PUSH (21:08)
[2023-07-06] MEDS: diazePAM INJ (*CRX) 10 MG/2 ML SYRINGE 2.5 MG IV PUSH (21:09)
--- NOTE | 2023-07-06 21:56 | PC.NURSE ---
[id number] notified Rebekah per Rocio request of patient expiring [id number] attempted to contact son [place] per 's request - left message to call hospital
--- NOTE | 2023-07-07 07:26 | P.DN_ITS ---
Discharge Summary Date and Time Date of : 07/06/23 Time of : 21:42 Provider Pronounced By: Madhuri Rinaldi RN (charge) Annette Chery RN (primary nurse) Probable Cause of Probable Cause of : pneumonia Summary Hospital Course: This is a pleasant 77-year-old male with a past medical history atrial fibrillation on Eliquis, prior tobacco use, COPD, interstitial lung disease (followed by Dr. Arndt), noted 14 mm nodule in superior segment of right lower lobe elected to not be investigated, GERD, hypertension, hyperlipidemia, dementia, history of NSTEMI, degenerative joint disease.? Three weeks prior to admission he was living with his Rocio in assisted living at [place].? 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 The history is taken from the as well as Anisa Ferguson RN who is their aging life transitional care manager and is very helpful in discussions and helping the make decisions.? Apparently [facility] He was not brought in during those times.? Finally he was transferred to [facility] via EMS after he became short of breath.? During this time he was placed on oxygen and due to continued hypoxia was placed on a BiPAP.? [facility] evaluation demonstrated respiratory failure with respiratory distress requiring BiPAP.? ABG demonstrated respiratory alkalosis.? Troponin was mildly elevated an EKG noted some ST changes.? Cardiology was consulted.? The patient had sepsis in addition to his acute hypoxic respiratory failure with a lactic acid 2.7 and WBC count 30.? Chest x-ray demonstrated bilateral pneumonia versus edema.? Patient was administrated ceftriaxone and azithromycin and admitted to the IMU on 07/05/2023. Over the 1st night of his admission the patient became extremely agitated and multiple doses of Ativan and morphine were administered.? Upon evaluation on 07/05 in the morning the patient was obtunded but eventually he became alert.? In fact, he sat up in bed on the BiPAP and verbalized he just wants to go home.? Subsequently, a conversation was held in front of the patient with his Rocio and the family's aging life transitional care manager Anisa Ferguson RN as well as the patient's granddaughter and son at bedside.? They have been following with Dr. Arndt for his interstitial lung disease.? As mentioned above a 14 mm nodule was seen and they elected not to further investigate due to the patient's advancing dementia.? As such, they would like the patient to be treated for this pneumonia while hospice is consulted and they prefer him to be returns to the intermediate facility with hospice.? The patient is currently DNR and they are okay with BiPAP.? In fact, we attempted to take off his BiPAP and he desaturated to 78% on high-flow nasal cannula 10 L.? These conversations were held in front of the patient he had no objection.? He follows the guidance of his .? In fact, only thing he would tell me is that he wants to go home. Later on the night of the the patient became increasingly more agitated. He required 80% FiO2 to maintain oxygen saturation greater than 92% pulse oximetry. He appeared slightly cyanotic. Began to pull off his BiPAP mask. Ultimately, decision made to pursue comfort care. He shortly after. His was expected. Additional Data Confirmation of as documented by pronouncing clinician: Pupillary Reflex, Palpable Pulses, Response to Stimuli, Heart Tones and Breath Sounds Name of Provider Notified: Dr. Adams and PALMA Jane Time Provider Notified: 22:00 Provider Requests Autopsy: No Family Requests Autopsy: No Adjunct Latin Professor Notified: Yes Date [facility] Notified of : 07/06/23 Time [facility] Notified of : 22:43
[2023-07-09 18:14] LABS: Pneumococcal Antigen Urine NOT DETECTED
[2023-07-11 03:03] LABS: Legionella pneumophila Ag Ur NOT DETECTED
[2023-07-11 11:38] LABS: Adenovirus DNA Not Detected (Not Detected); Chlamydophila pneumoniae Not Detected (Not Detected); Coronavirus 229E Not Detected (Not Detected); Coronavirus HKU1 Not Detected (Not Detected); Coronavirus NL63 Not Detected (Not Detected); Coronavirus OC43 Not Detected (Not Detected); Human Metapneumovirus Not Detected (Not Detected); Human Parainfluenza Virus 1 Not Detected (Not Detected); Human Parainfluenza Virus 2 Not Detected (Not Detected); Human Parainfluenza Virus 3 Not Detected (Not Detected); Human Parainfluenza Virus 4 Not Detected (Not Detected); Human RSV B Not Detected (Not Detected); Influenza A Not Detected (Not Detected); Influenza B Not Detected (Not Detected); Mycoplasma pneumoniae Not Detected (Not Detected); Rhinovirus/Enterovirus Not Detected (Not Detected)
== END 2023-07-06 21:42 | disposition expired | DRG 193 ==
LOC: ANHED 16:15 → ANHIMU 20:32
PROVIDERS: Internal Medicine; Student in an Organized Health Care Education/Training Program; Admitting Provider General Practice; Emergency Provider Emergency Medicine; PCP Family Medicine; Visit Provider General Practice
DX: J18.9 Pneumonia, unspecified organism (principal); J96.01 Acute respiratory failure with hypoxia; I50.32 Chronic diastolic (congestive) heart failure; J43.9 Emphysema, unspecified; J84.10 Pulmonary fibrosis, unspecified; E78.5 Hyperlipidemia, unspecified; F03.90 Unspecified dementia, unspecified severity, without behavioral disturbance, psychotic disturbance, mood disturbance, and anxiety; I11.0 Hypertensive heart disease with heart failure; I48.0 Paroxysmal atrial fibrillation; I25.2 Old myocardial infarction; K21.9 Gastro-esophageal reflux disease without esophagitis; M19.90 Unspecified osteoarthritis, unspecified site; R29.6 Repeated falls; R91.1 Solitary pulmonary nodule; Z66 Do not resuscitate; Z79.01 Long term (current) use of anticoagulants; Z87.891 Personal history of nicotine dependence
CPT/HCPCS: 36415; 36600; 70450; 70486; 71045; 72125; 80048; 80053; 82375; 82805; 83050; 83605; 83735; 83880; 84484; 85025; 85610; 85730; 86738; 87040; 87449; 87633; 87637; 87641; 87899; 93005; 94002; 94003; 94640; 96365; 96367; 96375; 99285; A9270; G0378; J0282; J0456; J0692; J0696; J1644; J1940; J2060; J2270; J2919; J3360